=== PATIENT | female | born 1945 | race Caucasian/White ===

== ENCOUNTER 2016-08-29 15:22 | Emergency (ER) | payer MEDICARE, BC ==
[2016-08-29 16:19] VITALS: BP 145/67
--- NOTE | 2016-08-29 16:53 | UC ---
Complaint Female HPI - HPI Summary HPI Summary: Day 2 of pain, burning, urgency and frequency with urination--no fevers, chills , nausea, vomiting or back pain - History Of Current Complaint Chief Complaint: UCGU Stated Complaint: UTI COMPLAINT Time Seen by Provider: 08/29/16 16:31 Hx Obtained From: Patient ?: No Onset/Duration: Sudden Onset, Lasting Days - 2, Still Present Timing: Constant Severity Initially: Moderate Severity Currently: Moderate Pain Intensity: 5 Pain Scale Used: 0-10 Numeric Character: Burning Aggravating Factor(s): Urination Alleviating Factor(s): Nothing Associated Signs And Symptoms: Positive: Negative - Allergies/Home Medications Allergies/Adverse Reactions: Allergies Allergy/AdvReac Type Severity Reaction Status Date / Time Nickel Allergy Intermediate Hives Verified 08/29/16 16:19 Cetirizine [From Zyrtec] AdvReac Intermediate INCREASED Verified 08/29/16 16:19 BLOOD PRESSURE Levocetirizine [From Xyzal] AdvReac Intermediate INCREASED Verified 08/29/16 16: 19 BLOOD PRESSURE Morphine AdvReac Intermediate Vomiting Verified 08/29/16 16:19 SEASONAL ALLERGY Allergy Sneezing Uncoded 08/29/16 16:19 PMH/Surg Hx/FS Hx/Imm Hx Previously Healthy: No Endocrine History Of: Denies: Diabetes, Thyroid Disease Cardiovascular History Of: Reports: Cardiac Disorders, Hypertension - CONTROL WITH MEDS Respiratory History Of: Reports: Asthma - INHALERS Denies: COPD GI/ History Of: Denies: Ulcer - Surgical History Surgical History: Yes Surgery Procedure, Year, and Place: Laminectomy x2;1985 1989, [facility]. [place]04[place]21/[place] [facility] [place] [facility] [place] [facility] [place] - Family History Known Family History: Positive: None Family History: denies cardio vascular issues in family lineage - Social History Occupation: Retired Lives: With Family Alcohol Use: Rare Alcohol Amount: wine with friends Substance Use Type: None Smoking Status (MU): Never Smoked Tobacco Review of Systems Constitutional: Negative Skin: Negative Eyes: Negative ENT: Negative Respiratory: Negative Cardiovascular: Negative Gastrointestinal: Negative Genitourinary: Dysuria, Frequency, Urgency Motor: Negative Neurovascular: Negative Musculoskeletal: Negative Neurological: Negative Psychological: Negative All Other Systems Reviewed And Are Negative: Yes Physical Exam Triage Information Reviewed: Yes Appearance: Well-Appearing, No Pain Distress, Well-Nourished Vital Signs: Initial Vital Signs Temp 97.4 F 08/29/16 16:16 Pulse 65 08/29/16 16:16 Resp 18 08/29/16 16:16 BP 145/67 08/29/16 16:16 Pulse Ox 99 08/29/16 16:16 Vital Signs Reviewed: Yes Eye Exam: Normal Eyes: Positive: Conjunctiva Clear ENT Exam: Normal ENT: Positive: Normal ENT inspection, Hearing grossly normal. Negative: Nasal congestion, Nasal drainage, Trismus, Muffled/hoarse voice Dental Exam: Normal Neck exam: Normal Neck: Positive: Supple, Nontender Respiratory Exam: Normal Respiratory: Positive: Chest non-tender, No respiratory distress, No accessory muscle use Cardiovascular Exam: Normal Cardiovascular: Positive: RRR, Pulses Normal, Brisk Capillary Refill Abdominal Exam: Normal Abdomen Description: Positive: Nontender, No Organomegaly, Soft Bowel Sounds: Positive: Present Musculoskeletal Exam: Normal Musculoskeletal: Positive: Strength Intact, ROM Intact, No Edema Neurological Exam: Normal Neurological: Positive: Alert, Muscle Tone Normal Psychological Exam: Normal Skin Exam: Normal Diagnostics - Laboratory Diagnostic Studies Completed/Ordered: ua +blood and leuks Complaint Female Dx - Course Course Of Treatment: Cipro, azo, increase fluids follow with pcp - Differential Dx/Diagnosis Differential Diagnosis/HQI/PQRI: Renal Colic, Urinary Tract Infection Provider Diagnoses: UTI, Hypertension Discharge - Discharge Plan Condition: Stable Disposition: HOME Prescriptions: Ciprofloxacin TAB* [Cipro 250 MG Tab*] 250 mg PO BID #6 tab Patient Education Materials: Phenazopyridine (By mouth), Urinary Tract Infection in Women (ED), DASH Eating Plan (ED), Hypertension (ED) Referrals: Shelbie Perdomo MD [Primary Care Provider] - 2 Weeks
== END 2016-08-29 17:01 | disposition home or self-care (01) ==
LOC: UCEAST 15:22
DX: N39.0 Urinary tract infection, site not specified (principal); I10 Essential (primary) hypertension; J45.909 Unspecified asthma, uncomplicated; Z88.5 Allergy status to narcotic agent
CPT/HCPCS: 81003; 87077; 87086; 87186; 99212; G0463

== ENCOUNTER 2016-12-29 06:12 | Inpatient (IN) | payer MEDICARE, BC ==
--- NOTE | 2016-12-24 14:48 | HP ---
HISTORY AND PHYSICAL: DATE OF OFFICE VISIT: 12/23/16 DATE OF SURGERY: 12/29/16 SURGEON: Adela Das MD * (DICTATED BY RICKEY PDERO) PROCEDURE: Left total knee arthroplasty. CHIEF COMPLAINT: Left knee pain. HISTORY OF PRESENT ILLNESS: Ms. Walters is a 71-year-old female with complaints of left knee pain secondary to advanced osteoarthritis. She has failed conservative management, has elected to proceed with a left total knee arthroplasty, which is scheduled for 12/29/[address] Das. PAST MEDICAL HISTORY: History of blood clot, asthma, hypertension, hyperlipidemia, and goiter. PAST SURGICAL HISTORY: 1. Right total knee arthroplasty. 2. Lumbar laminectomies. 3. Left knee arthroscopy. 4. Varicose vein surgeries. CURRENT MEDICATIONS: 1. Omeprazole 20 mg daily. 2. Atenolol 100 mg twice a day. 3. Lisinopril/hydrochlorothiazide 20/25 mg daily. 4. Diclofenac 50 mg daily. 5. Potassium chloride. 6. Metaxalone. 7. Voltaren gel. 8. Gabapentin. 9. Betamethasone. 10. Valerate. 11. Aspirin 81 mg daily. 12. Flovent. 13. Albuterol sulfate. 14. Multivitamin. 15. Calcium with vitamin D. 16. Magnesium 400 mg daily. 17. Cranberry and probiotic. 18. Nystatin cream. ALLERGIES: To NICKEL, XYZAL, ZYRTEC, ANTIHISTAMINES, and MORPHINE. MORPHINE causes vomiting. FAMILY HISTORY: Stroke, heart disease, hypertension. SOCIAL HISTORY: She is a 71-year-old female lives with her . She does not smoke or use drugs. Rarely uses alcohol. REVIEW OF SYSTEMS: A complete 14-point review of systems is reviewed with the patient and is positive for history of DVT. PHYSICAL EXAMINATION GENERAL: She is well developed, well nourished, in no acute distress. VITAL SIGNS: She stands 5 feet 11 inches tall, weighs 260 pounds, blood pressure 115/59, her heart rate is 60. HEENT: Normocephalic, atraumatic. NECK: Supple. No palpable lymph nodes. PULMONARY: Lungs are clear to auscultation bilaterally. CARDIO: Regular rate and rhythm. Strong S1 and S2. ABDOMEN: Soft, nontender, and nondistended. NEUROLOGIC: Alert and oriented x3. Cranial nerves II through XII are intact. MUSCULOSKELETAL: Left lower extremity, skin is intact. There are no open wounds or abrasions. She has tenderness over the medial and lateral joint line , 5 to 125 degrees flexion. Her lower extremity muscle group strengths are intact at 5/5. She has 2+ dorsalis pedis pulses and intact sensation. ASSESSMENT AND PLAN: Ms. Walters is a 71-year-old female with complaints of left knee pain secondary to end-stage osteoarthritis. She has failed conservative management and has elected to proceed with a left total knee arthroplasty, which is scheduled for 12/29/[address] Das discussed the risks and benefits of the surgery on today's visit and all of her questions were answered. Postoperatively for DVT prophylaxis, she will be on Lovenox in the hospital and she will go home on Xarelto 10 mg daily, Percocet and Colace were sent to her pharmacy for postoperative pain control. She will follow up with Dr. Das in 2 weeks after the surgery. RICKEY PEDRO [id number]/[facility] #: [id number] NELLI
[~2016-12-29 06:12] MED LIST: Buffered Lidocaine 0.9% SYRIN* 5 ML/SYR SYRINGE INTRADERM ONE
[2016-12-29] MEDS ORDERED: ceFAZolin 2 GM PREMIX (*) 50 ML IVPB ONE (07:00)
[2016-12-29] MEDS ORDERED: Buffered Lidocaine 0.9% SYRIN* 5 ML/SYR SYRINGE ONE (07:00)
[2016-12-29] MEDS ORDERED: Morphine PF AMP (0.5MG/ML)* 5 MG/10 ML AMP ONE (07:19)
[2016-12-29] MEDS ORDERED: Midazolam* 1 MG/ML 5 ML VIAL (5 MG) ONE ×2 (07:19→09:08)
[2016-12-29] MEDS ORDERED: Propofol* 500 MG/50 ML BTL ONE (07:20)
[2016-12-29] MEDS ORDERED: Atenolol TAB* 50 MG PO ONE (08:00)
[2016-12-29] MEDS ORDERED: KETAMINE HCL* 50 MG/ML 10 ML VIAL ONE (08:19)
[2016-12-29] MEDS ORDERED: Acetaminophen TAB* 325 MG PO PRN (09:06)
[2016-12-29] MEDS ORDERED: HYDROcodone/ACETAMIN 5-325 MG* 1 TAB PO PRN (09:06)
[2016-12-29] MEDS ORDERED: fentaNYL* 50 MCG/ML 2 ML VIAL (100 MCG VIAL) IV PRN (09:06)
[2016-12-29] MEDS ORDERED: DiMENhydriNATE IV* 50 MG/ML VIAL IV PUSH PRN (09:06)
[2016-12-29] MEDS ORDERED: Ondansetron ODT TAB* 4 MG PO PRN (09:06)
[2016-12-29] MEDS ORDERED: Nalbuphine* 20 MG/ML 1 ML VIAL IV PRN (09:06)
[2016-12-29] MEDS ORDERED: Ondansetron INJ* 2 MG/ML VIAL IV PRN (09:08)
[2016-12-29] MEDS ORDERED: diPHENhydraMINE IV* 50 MG/ML 1 ml VIAL (BENADRYL) IV PRN ×2 (09:08→10:01)
[2016-12-29] MEDS ORDERED: Scopolamine 1.5 mg* PATCH TRANSDERM PRN (09:08)
[2016-12-29] MEDS ORDERED: Naloxone* 0.4 MG/ML 1 ML VIAL IV PRN (09:08)
[2016-12-29] MEDS ORDERED: Scopolomine PATCH Remove* 1 NOTE MISC PATCH OFF PRN (09:08)
[2016-12-29] MEDS ORDERED: Bupivacaine 0.5% SDV PF* 30 ML VIAL ONE (09:26)
[2016-12-29] MEDS ORDERED: oxyCODONE TAB* 5 MG TAB PO PRN ×2 (10:01→18:30)
[2016-12-29] MEDS ORDERED: Polyethylene Glycol 3350* 17 GM PACKET PO PRN (10:01)
[2016-12-29] MEDS ORDERED: Bisacodyl SUPP* 10 MG SUPP PR PRN (10:01)
[2016-12-29] MEDS ORDERED: Albuterol HFA INHALER* 8 gm MDI INH PRN (10:08)
[2016-12-29] MEDS ORDERED: Gabapentin CAP(*) 100 MG PO PRN (10:08)
[2016-12-29] MEDS ORDERED: Ondansetron INJ* 2 MG/ML VIAL ONE ×2 (10:09→10:10)
[2016-12-29] MEDS ORDERED: Sterile Water for Inj* 10 ML ONE (10:09)
[2016-12-29] MEDS ORDERED: Ketorolac INJ* 30 MG/ML 1 ML VIAL ONE (10:09)
[2016-12-29] MEDS ORDERED: EPHEDrine (Pressors)* 50 MG/ML VIAL ONE (10:09)
[2016-12-29] MEDS ORDERED: Midazolam* 1 MG/ML 2 ML VIAL (2 MG) ONE (10:22)
[2016-12-29] MEDS ORDERED: Albuterol 2.5 MG/3 ML NEB.SOL* (0.083%) INH PRN (11:37)
--- NOTE | 2016-12-29 13:44 | RAD ---
INDICATION: Status post total left knee replacement surgery. TECHNIQUE: 2 views of the left knee were obtained. FINDINGS: The patient is status post total left knee replacement surgery. The bones and prostheses are in normal alignment. There is a single surgical drain present along the anterolateral aspect of the knee. IMPRESSION: STATUS POST TOTAL RIGHT KNEE REPLACEMENT SURGERY.
--- NOTE | 2016-12-29 14:54 | CONS ---
CC: Dr. Perdomo; Dr. Das * CONSULTATION REPORT: DATE OF CONSULT: 12/29/16 PRIMARY CARE PROVIDER: Dr. Perdomo ATTENDING PHYSICIAN WHILE IN THE HOSPITAL: Dr. Linus Coats (report dictated by Maurizio Trinh NP). REQUESTING PHYSICIAN FOR CONSULT: Dr. Das. REASON FOR MEDICAL CONSULTATION: Evaluation and medical management of comorbid medical conditions. HISTORY OF PRESENT ILLNESS: Mrs. Walters is a 71-year-old female patient that presented to Dr. Das's service in the outpatient setting with complaints of left knee pain. She has been failing conservative management. She sought care with Dr. Das and it was felt that she would benefit from a left total knee replacement, which she underwent today. Prior to this, she did have cardiology evaluation with a negative stress test and she also underwent evaluation with her primary, and she was deemed low risk for the proposed procedure. She underwent the procedure today. She does carry a history of hypertension, DVT, status post right knee, history of asthma, hyperlipidemia, arthritis, diverticulosis, GERD, and spinal stenosis. She was evaluated in the PACU. She states she is feeling well. She feels like she has to burp. She is not having any chest pain. She is not having any abdominal pain. No nausea. No vomiting. No lightheadedness. She says that she cannot feel her lower extremities as she did undergo a spinal anesthetic and she, again, is feeling well and her pain is well controlled, but because of her medical complexity, we were asked to evaluate in consult. PAST MEDICAL HISTORY: Significant for: 1. Hypertension. 2. History of DVT that was provoked after her right total knee replacement. 3. Asthma. 4. Hyperlipidemia. 5. Arthritis. 6. Diverticulosis. 7. GERD. 8. Spinal stenosis. PAST SURGICAL HISTORY: 1. She has had 2 lumbar spinal surgeries. 2. She has had a right total knee replacement and now recently a left total knee replacement. 3. She has had vein stripping of the bilateral lower extremities. HOME MEDICATIONS: According to the list provided, include: 1. Potassium chloride 2 tablets p.o. b.i.d. 2. Omeprazole 20 mg daily. 3. Nystatin 1 application topically b.i.d. 4. Multivitamin 1 capsule daily. 5. Skelaxin 800 mg at bedtime. 6. Magnesium 400 mg p.o. q.p.m. 7. Lisinopril/hydrochlorothiazide 1 tablet p.o. daily. 8. Lactobacillus 1 capsule p.o. q.p.m. 9. Neurontin 200 mg p.o. daily as needed. 10. Neurontin 900 mg at bedtime. 11. Flovent 2 puffs inhaled b.i.d. 12. Diclofenac 50 mg p.o. q.a.m. 13. Diclofenac gel 1 application topically b.i.d. as needed. 14. Cranberry 475 mg p.o. daily. 15. Calcium with vitamin D 1 tablet p.o. daily. 16. Betamethasone 1 application topically b.i.d. as needed. 17. Atenolol 100 mg p.o. b.i.d. 18. Aspirin 81 mg daily. 19. Ventolin 2 puffs inhaled every 4 hours as needed. ALLERGIES MEDICATIONS: Include NICKEL, MINOXIDIL, CETIRIZINE, LEVOCETIRIZINE, and MORPHINE. FAMILY HISTORY: Mother had history of CVA. Father had history of heart disease and CHF. SOCIAL HISTORY: She does not smoke. She rarely drinks alcohol. Surrogate decision maker is her . REVIEW OF SYSTEMS: There is no documented fever. Denied having any significant weight change. There is no double vision. There is no ear discharge. Denied having any rhinorrhea. No sore throat. No thyroid enlargement. Denied having any chest pain. There is no orthopnea. No nocturnal dyspnea. No abdominal pain, no nausea, no vomiting. No dysuria, no frequency. No seizure, no loss of consciousness. No pruritus and no skin ulcerations. Review of 14 systems completed, all others are negative. PHYSICAL EXAMINATION: Vital Signs: Blood pressure 121/56, pulse 55, respirations 16, O2 sat 92% on 2 L, temperature 98.1. General: At this time, Mrs. Walters is a 71-year-old female patient, she appears to be well nourished, well developed. She does not appear to be in any acute distress. HEENT: Head is atraumatic and normocephalic. Eyes: EOMs are intact. Sclerae are anicteric and not pale. Neck: Supple. Throat: Oral mucosa appears to be moist. No oropharyngeal erythema. Heart: Sounds S1 and S2. Regular rate and rhythm. No murmurs, rubs or gallops. Lungs: Clear to auscultation bilaterally. No wheezing, rales or rhonchi. Abdomen: Soft, flat, nontender. Bowel sounds present. Extremities: Distal CSM checks are intact. She has no sensation to the lower extremities because of the spinal, but she has good capillary refill and 2+ pulses. No peripheral edema. Neurologic: She is awake , alert, oriented x3. Tongue, midline. Temporary Staff Accountant are equal. No gross focal deficits. Skin: Intact with the exception to the left knee, she has an Derek dressing with a Hemovac, which is clean, dry, and intact. DIAGNOSTIC STUDIES/LAB DATA: Labs, preoperatively, revealed WBC 5.0, RBC of 4.78, hemoglobin 14.6, hematocrit of 43, and platelet count of 202. The sodium is 141, potassium 4.1, chloride 104, bicarbonate 33, BUN 19, creatinine 0.87, and glucose of 86. Urine preop was negative. She did have a preop stress test , which again showed no reversible ischemia. Preop EKG shows sinus bradycardia with a rate of 58. No T-wave inversions were noted. She had a chest x-ray preop as well, no evidence of acute disease. Old medical records were reviewed. ASSESSMENT AND PLAN: Mrs. Walters is a 71-year-old female patient, coming into orthopedic services today for an elective left total knee replacement. We were asked to consult for medical co-management. Recommendations at this point are: 1. Status post left total knee: We will defer the management to Dr. aDs and her team. 2. History of provoked DVT: She is on Lovenox. She is going to be also started on Coumadin. I would continue the Lovenox until her INR is therapeutic. 3. History of hypertension: I am holding her medications, with the exception of the beta chikis. 4. History of gastroesophageal reflux disease: We will continue her meds as prescribed. 5. History of asthma: She has p.r.n. albuterol ordered and Flovent. 6. History of spinal stenosis: There are pain meds made available. 7. Diverticulosis: Not an active issue. 8. Arthritis: Follow up with her primary. 9. DVT prophylaxis: Again, high risk. She is on Lovenox bridging with the Coumadin. 10. Code status: Full code. 11. Fluids, electrolytes, and nutrition: I would recommend a regular diet. TIME SPENT: Time spent on the consult was 60 minutes, greater than half the time was spent [id number] with the patient obtaining my history of physical, the other half of the time was spent going over the plan of care with the patient and implementing plan of care. I did discuss the plan of care with my attending, Dr. Coats, who is in agreement. MAURIZIO TRINH, CASSIE [id number]/[facility] #: [id number] NELLI
[2016-12-29] MEDS: ceFAZolin 1 GM VIAL(*) 1 GM in NS 0.9% 50 ML* 50 ML IVPB SCH (16:00)
[2016-12-29] MEDS ORDERED: Warfarin TAB(*) 6 MG PO ONE (17:00)
[2016-12-29] MEDS ORDERED: Mometasone 220 MCG MDI INH SCH (18:00)
[2016-12-29] MEDS ORDERED: oxyCODONE/Acetamin 5/325 MG* TAB PO PRN (18:30)
[2016-12-29] MEDS ORDERED: Ketorolac INJ* 30 MG/ML 1 ML VIAL IV PRN (18:30)
[2016-12-29] MEDS ORDERED: oxyCODONE TAB* 5 MG TAB ONE (20:01)
[2016-12-29] MEDS: Docusate CAP* 100 MG PO SCH (21:00)
[2016-12-29] MEDS ORDERED: ATENOLOL 100 MG PO SCH (21:00)
[2016-12-29] MEDS ORDERED: PTO:Fluticasone HFA 44 mcg(NF) MDI INH SCH (21:00)
[2016-12-29] MEDS: Atenolol TAB* 50 MG PO SCH (21:02)
[2016-12-29] MEDS: Nystatin CREAM* 15 GM TUBE TOPICAL SCH (21:03)
[2016-12-29] MEDS: Metaxalone TAB* 800 MG PO SCH (21:07)
[2016-12-29] MEDS: Gabapentin CAP(*) 300 MG PO SCH (22:48)
[2016-12-30] MEDS: ceFAZolin 1 GM VIAL(*) 1 GM in NS 0.9% 50 ML* 50 ML IVPB SCH ×2 (00:07→08:11)
[2016-12-30] MEDS: Ondansetron TAB* 4 MG PO PRN ×4 (03:14→22:20)
[2016-12-30] MEDS: HYDROmorphone* 1 MG/ML 1 ML CARPUJECT IV SLOW PU PRN ×3 (03:16→13:38)
[2016-12-30 05:51] LABS: Hematocrit 35 % (35-47); Hemoglobin 12.1 g/dl (12.0-16.0)
[2016-12-30 06:06] LABS: BUN/Creatinine Ratio 21.1 (8-20); Calcium 8.8 mg/dL (8.6-10.3); EGFR African American 96.8 (>60); EGFR Non-African American 75.2 (>60); Potassium 3.6 mmol/L (3.5-5.0)
[2016-12-30] MEDS: oxyCODONE/Acetamin 5/325 MG* TAB PO PRN ×4 (06:25→22:20)
--- NOTE | 2016-12-30 07:06 | OP ---
DATE OF OPERATION: 12/29/16 - ROOM #350 DATE OF : 47 ATTENDING SURGEON: Adela Das MD COMMUNITY SUPPORT ASSOCIATE: RICKEY Worthington. Ms. Salas did help throughout the procedure with preparation of the leg, wound retraction, manipulation of the knee, and wound closure. ANESTHESIOLOGIST: Dr. Ashley Cruz. ANESTHESIA: Spinal. PRE-OP DIAGNOSIS: Severe end-stage degenerative osteoarthritis of the left knee joint. POST-OP DIAGNOSIS: Severe end-stage degenerative osteoarthritis of the left knee joint. OPERATIVE PROCEDURE: Left total knee arthroplasty. HARDWARE USED: Cemented Araujo [employer]hew total knee arthroplasty hardware. For the femur, a size 7 left Oxinium femoral component posterior stabilized, for the tibia a size 6 left tibial baseplate, for the insert an 11 mm size 5-6 posterior stabilized articular insert, and for the patella a 35 mm 3 peg all poly patella. COMPLICATIONS: None. TOURNIQUET TIME: 53 minutes. SPECIMENS: Bone and cartilage from the left knee joint sent to Pathology. EBL: 250 cc. BRIEF HISTORY/INDICATIONS: Ms. Walters is a 71-year-old female with years of increasingly severe left knee pain. She failed conservative treatment with antiinflammatories, pain medications, intra-articular injections, and physical therapy. Radiographs showed [id number] arthritis and she elected to proceed with left total knee arthroplasty. Informed consent was obtained from the patient. She understood the risks of procedure included but were not limited to bleeding, infection, damage to nearby structures, continued pain, need for further surgery, intraoperative fracture, nerve palsy, hardware failure or loosening, knee stiffness, loss of motion, stroke, heart attack, blood clot, and . She wished to proceed. INTRAOPERATIVE FINDINGS: Intraoperatively, the patient was noted to have a severe end-stage arthritis in a tricompartmental portion. DESCRIPTION OF PROCEDURE: Ms. Pizarro was identified in the preanesthesia unit. Her left lower extremity was marked as the correct operative site. Informed consent was signed and placed in the chart. The patient was taken to the operating room and placed under spinal anesthesia with an adductor nerve block. Paulino catheter was placed. Tourniquet was placed on the left thigh. Left lower extremity was prepped and draped in the usual sterile fashion. Preop time -out was made to correctly identify the patient side and site. Appropriate perioperative antibiotics were given within 1 hour of incision. Tourniquet was inflated until tourniquet time for this procedure was 53 minutes. A 15 cm midline incision was made with a 10-blade carried down to the extensor mechanism. A new 10-blade was used to make a standard medial parapatellar arthrotomy. Patella was subluxed laterally. Electrocautery was used to subperiosteally elevate soft tissue off the superomedial tibia. The knee was flexed up. The anterior horn of the lateral meniscus and ACL were sharply released. A drill was used to enter the distal femur. Intramedullary cutting jig was pinned on the distal femur. A 9-mm of distal femur was carefully removed using an oscillating saw. External rotation guide was pinned on the distal femur. The distal femur was sized to a size 7. Size 7 multi cutting jig was pinned on the distal femur. The oscillating saw was used to make the appropriate 4 chamfer cuts. Next, the PCL was completely released. The tibia was subluxed anteriorly. Extramedullary tibial cutting guide was pinned on the proximal tibia. Oscillating saw was used to make a proximal tibial cut perpendicular to the mechanical axis of the tibia. The bone was carefully removed. The knee was brought out into full extension. Spacer block had excellent fit with the knee in full extension. There was good medial and lateral ligamentous balancing. There was good flexion and extension gap balancing. The knee was flexed up. Lamina employment adjudicator was placed both medially and laterally. Any remaining meniscus was carefully removed using electrocautery. Curved osteotome and curette was used to remove posterior osteophytes. Tibial tray and drop rods were placed to once again confirm satisfactory tibial cut as this was confirmed. A size 7 left femoral trial was impacted on to the distal femur and noted to have good fit. The box for the posterior stabilized implant was prepared using a reamer and box cut osteotome. A size 6 tibial tray trial and a 11 mm insert trial were placed. The knee was taken through a range of motion. The knee had full extension to 130 degrees of flexion with satisfactory patellofemoral tracking. The patella was everted. 9 mm of patellar bone and cartilage was carefully removed from the patella using oscillating saw. The patella was sized to a size 35. Three peg holes were drilled through the size 35 guide. The 35 trial patella was placed and the knee was taken through a range of motion. There was satisfactory patellofemoral tracking. The left tibia was sized to a size 6. Proximal tibia was prepared using size 6 keel punch. All bony cut surfaces were copiously irrigated with sterile saline and dried. Final implants were cemented into place starting with the tibia followed by the femur and last the patella. An 11-mm insert trial was placed while the knee was brought out into full extension. The tourniquet was turned down at 53 minutes. The knee was copiously irrigated. Once the cement had fully cured, the insert trial was removed. Any excess cement was carefully removed from around the hardware and capsule. Electrocautery was used to obtain meticulous hemostasis. Final insert chosen was an 11-mm posterior stabilized articular insert size 5/6. This was locked into position on the tibial tray. Stability of the insert was checked and rechecked and noted to be stable. The knee was copiously irrigated with sterile saline. The extensor mechanism was closed over a medium Hemovac drain using interrupted #1 Vicryl. The rest of the incision was closed in a layered fashion using 0 and 2-0 Vicryl. Skin was closed using running 3-0 nylon suture. Sterile Xeroform, 4x4s, and Webril were used to cover the incision. Cold pack and Derek wrap were placed over this. The patient's anesthesia was reversed without difficulty. She was taken to the PACU in stable condition. Intended weight bearing will be weight bearing as tolerated. Intended DVT prophylaxis will be Coumadin with a Lovenox bridge. [id number]/[facility] #: [id number] HEALTH SYSTEMVika
[2016-12-30] MEDS ORDERED: Enoxaparin(*) 30 MG/0.3 ML SYR SUBCUT SCH (08:00)
[2016-12-30] MEDS: Docusate CAP* 100 MG PO SCH ×2 (08:06→20:40)
[2016-12-30] MEDS: Atenolol TAB* 50 MG PO SCH ×2 (08:06→20:40)
[2016-12-30] MEDS: Omeprazole CAP* 20 MG PO SCH (08:06)
[2016-12-30] MEDS: PTO:Fluticasone HFA 44 mcg(NF) MDI INH SCH ×2 (08:16→20:46)
[2016-12-30] MEDS: Nystatin CREAM* 15 GM TUBE TOPICAL SCH ×2 (08:16→20:42)
[2016-12-30] MEDS ORDERED: Lisinopril/HCTZ 10/12.5(NF) TAB PO SCH (09:00)
--- NOTE | 2016-12-30 11:47 | PN ---
Progress Note - Progress Note Date of Service: 12/30/16 SOAP: Subjective: [Pt was seen this am sitting up in bed. She states that her knee is a little stiff today and painful. She states that she was given a dose of warfarin last night but was only supposed to be on lovenox while in the hospital. She denies any n/t. No chest pain, cough or SOB. No calf pain. ] Objective: [General: Pt is alert, awake and oriented. NAD LLE: Dressing is clean, dry and intact. Hemovac drain was pulled today and was found to have 275 ccs of blood. Calf is soft and non tender. + df/pf. NVI. ] Vital Signs Temp 98.6 F 12/30/16 07:32 Pulse 78 12/30/16 07:32 Resp 18 12/30/16 08:59 BP 149/65 12/30/16 07:32 Pulse Ox 100 12/30/16 08:00 Intake & Output 12/29/16 12/30/16 12/30/16 18:59 06:59 18:59 Intake Total 1630 2530 120 Output Total 840 450 0 Balance 790 2080 120 Weight 268 lb Intake: IV Fluids 1150 980 LR 1100 980 NS 50ML, Cefazolin 2G 50 Oral 480 1550 120 Output: Urine 300 Paulino 400 450 0 Estimated Blood Loss 140 Other: # Bowel Movements 0 Assessment: [POD 1 S/P LTKA] Plan: [D/C warfarin, pt will only have lovenox while in house. D/C on xarelto PT/OT Paulino out today Dressing change tomorrow. ]
--- NOTE | 2016-12-30 15:03 | PN ---
Subjective Date of Service: 12/30/16 Interval History: Patient seen and examined at bedside. She reports having some nausea following IV morphine earlier today. Patient reports pain that responds to morphine but less responsive to PO medications. After her prior knee replacement, she reports that she was discharged on Percocet and did okay but the first few days required IV meds. Denies CP, SOB. Reports a hx of DVT following last knee replacement, does not want warfarin, only Xarelto. No other acute concerns. Family History: Unchanged from Admission Social History: Unchanged from Admission Past Medical History: Unchanged from Admission Objective Active Medications: Acetaminophen (Tylenol Tab*) 650 mg PO Q4H PRN PRN Reason: PAIN OR TEMPERATURE Albuterol (Ventolin Hfa Inhaler*) 2 puff INH Q4H PRN PRN Reason: WHEEZING Albuterol (Ventolin 2.5 Mg/3 Ml Neb.Ivette*) 2.5 mg INH Q2H PRN PRN Reason: SOB/WHEEZING Atenolol (Tenormin Tab*) 100 mg PO BID [facility] Last Admin: 12/30/16 08:06 Dose: 100 mg Bisacodyl (Dulcolax Supp*) 10 mg [place] DAILY PRN PRN Reason: constipation Diphenhydramine HCl (Benadryl Iv*) 12.5 mg IV Q6H PRN PRN Reason: PRURITIS Docusate Sodium (Colace Cap*) 100 mg PO BID [facility] Last Admin: 12/30/16 08:06 Dose: 100 mg Enoxaparin Sodium (Lovenox(*)) 30 mg SUBCUT Q24H [facility] Last Admin: 12/30/16 08:07 Dose: 30 mg Fluticasone Propionate (Flovent Hfa 44 Mcg(Nf)) 2 puff INH 0900,2100 [facility] Last Admin: 12/30/16 08:16 Dose: 2 inhaler Gabapentin (Neurontin Cap(*)) 900 mg PO BEDTIME [facility] Last Admin: 12/29/16 22:48 Dose: Not Given Gabapentin (Neurontin Cap(*)) 200 mg PO DAILY PRN PRN Reason: PAIN/SLEEP Hydromorphone HCl (Dilaudid Iv*) 1 mg IV SLOW PU Q4H PRN PRN Reason: PAIN Last Admin: 12/30/16 13:38 Dose: 1 mg Lactated Ringer's (Lactated Ringers 1000 Ml Bag*) 1,000 mls @ 100 mls/hr IV PER RATE [facility] Last Admin: 12/29/16 22:45 Dose: 100 mls/hr Ketorolac Tromethamine (Toradol Inj*) 30 mg IV Q6H PRN PRN Reason: PAIN Stop: 12/30/16 18:32 Last Admin: 12/30/16 08:07 Dose: 30 mg Lactulose (Lactulose*) 30 ml PO Q6H PRN PRN Reason: constipation Magnesium Hydroxide (Milk Of Magnesia Liq*) 30 ml PO Q6H PRN PRN Reason: constipation Metaxalone (Skelaxin Tab*) 800 mg PO BEDTIME [facility] Last Admin: 12/29/16 21:07 Dose: Not Given Nystatin (Nystatin Cream*) 1 applic TOPICAL BID [facility] Last Admin: 12/30/16 08:16 Dose: 1 applic Omeprazole (Prilosec Cap*) 20 mg PO QAM [facility] Last Admin: 12/30/16 08:06 Dose: 20 mg Ondansetron HCl (Zofran Tab*) 4 mg PO Q6H PRN PRN Reason: NAUSEA Last Admin: 12/30/16 13:39 Dose: 4 mg Oxycodone HCl (Roxycodone Tab*) 10 mg PO Q4H PRN PRN Reason: SEVERE PAIN Last Admin: 12/30/16 00:12 Dose: 10 mg Oxycodone/Acetaminophen (Percocet 5/325 Tab*) 1 tab PO Q3H PRN PRN Reason: PAIN - MODERATE Oxycodone/Acetaminophen (Percocet 5/325 Tab*) 2 tab PO Q3H PRN PRN Reason: PAIN - MODERATE Last Admin: 12/30/16 12:14 Dose: 2 tab Pharmacy Profile Note (Scopolomine Patch Remove*) 1 note PATCH OFF .AFTER 72 HOURS PRN PRN Reason: nausea Stop: 01/01/17 09:15 Polyethylene Glycol/Electrolytes (Miralax*) 17 gm PO DAILY PRN PRN Reason: Constipation Vital Signs 12/29/16 12/29/16 12/29/16 16:29 18:39 19:45 Temperature 97.1 F Pulse Rate 55 54 Respiratory 18 18 18 Rate Blood Pressure 126/72 136/60 (mmHg) O2 Sat by Pulse 99 97 Oximetry 12/29/16 12/29/16 12/29/16 20:04 20:59 21:07 Temperature Pulse Rate 60 Respiratory 16 16 16 Rate Blood Pressure 142/71 (mmHg) O2 Sat by Pulse 95 Oximetry 12/29/16 12/29/16 12/29/16 21:11 22:11 22:43 Temperature Pulse Rate Respiratory 16 18 16 Rate Blood Pressure (mmHg) O2 Sat by Pulse Oximetry 12/29/16 12/29/16 12/30/16 22:48 23:18 00:12 Temperature 97.9 F Pulse Rate 66 Respiratory 16 16 18 Rate Blood Pressure 112/51 (mmHg) O2 Sat by Pulse 100 Oximetry 12/30/16 12/30/16 12/30/16 02:12 02:44 03:16 Temperature Pulse Rate 66 Respiratory 16 16 20 Rate Blood Pressure (mmHg) O2 Sat by Pulse 95 Oximetry 12/30/16 12/30/16 12/30/16 03:31 04:16 06:25 Temperature 99.7 F Pulse Rate 78 Respiratory 18 16 18 Rate Blood Pressure 141/62 (mmHg) O2 Sat by Pulse 89 Oximetry 12/30/16 12/30/16 12/30/16 07:32 07:59 08:00 Temperature 98.6 F Pulse Rate 78 Respiratory 16 18 18 Rate Blood Pressure 149/65 (mmHg) O2 Sat by Pulse 100 100 Oximetry 12/30/16 12/30/16 12/30/16 08:25 08:59 11:31 Temperature 98.3 F Pulse Rate 73 Respiratory 18 18 16 Rate Blood Pressure 144/47 (mmHg) O2 Sat by Pulse 93 Oximetry 12/30/16 12/30/16 12/30/16 12:14 13:38 14:14 Temperature Pulse Rate Respiratory 18 18 18 Rate Blood Pressure (mmHg) O2 Sat by Pulse Oximetry 12/30/16 12/30/16 14:34 14:44 Temperature Pulse Rate Respiratory 18 Rate Blood Pressure (mmHg) O2 Sat by Pulse 93 Oximetry Oxygen Devices in Use Now: None Appearance: Female patient, sitting up in bed, in NAD Eyes: No Scleral Icterus Ears/Nose/Mouth/Throat: Clear Oropharnyx, Mucous Membranes Moist Neck: NL Appearance and Movements; NL JVP Respiratory: Symmetrical Chest Expansion and Respiratory Effort, Clear to Auscultation Cardiovascular: NL Sounds; No Murmurs; No JVD, RRR Abdominal: NL Sounds; No Tenderness; No Distention Extremities: No Clubbing, Cyanosis, - Skin: No Rash or Ulcers Neurological: Alert and Oriented x 3, NL Muscle Strength and Tone Lines/Tubes/Other Access: Clean, Dry and Intact Peripheral IV Nutrition: Taking PO's Result Diagrams: 12/30/16 05:44 12/30/16 05:44 Assess/Plan/Problems-Billing Assessment: Ms. Walters is a 71 yo female with a PMH of HTN, HLD, asthma, provoked DVT following previous knee replacement, OA, GERD, and spinal stenosis who underwent a left total knee replacement on 12/29/16. - Patient Problems (1) Status post total left knee replacement Code(s): Z96.652 - PRESENCE OF LEFT ARTIFICIAL KNEE JOINT Comment: POD #1, management per ortho Continue with pain management PT/OT (2) History of DVT (deep vein thrombosis) Code(s): Z86.718 - PERSONAL HISTORY OF OTHER VENOUS THROMBOSIS AND EMBOLISM Comment: Hx of provoked DVT following right knee arthroplasty Pt refusing to be maintained on warfarin, requesting Xarelto Cont Lovenox, plan to start Xarelto POD #2 in order to minimize risk of bleeding. (3) HTN (hypertension) Code(s): I10 - ESSENTIAL (PRIMARY) HYPERTENSION Comment: Normotensive Continue atenolol Lisinopril and HCTZ held post op Day 1 Plan to resume lisinopril on 12/31 (4) GERD (gastroesophageal reflux disease) Code(s): K21.9 - GASTRO-ESOPHAGEAL REFLUX DISEASE WITHOUT ESOPHAGITIS Comment : Continue omeprazole. (5) Asthma Code(s): J45.909 - UNSPECIFIED ASTHMA, UNCOMPLICATED Comment: Stable Continue prn albuterol (6) DVT prophylaxis Comment: Lovenox Pt refusing warfarin Will initiate rivaroxaban 10 mg per recommendations for knee replacements on POD #2 SCDs Status and Disposition: Inpatient admission. Dispo per ortho. Hospitalist co-medical management.
[2016-12-30] MEDS ORDERED: PROCHLORPERAZINE INJ 5 MG/ML 2 ML VIAL ONE (19:37)
[2016-12-30] MEDS: Gabapentin CAP(*) 300 MG PO SCH (20:39)
[2016-12-30] MEDS: Metaxalone TAB* 800 MG PO SCH (20:39)
[2016-12-30] MEDS ORDERED: PROCHLORPERAZINE INJ 5 MG/ML 2 ML VIAL IV PRN (21:14)
[2016-12-31 06:59] LABS: Hematocrit 33 % (35-47); Hemoglobin 11.4 g/dl (12.0-16.0)
[2016-12-31] MEDS: Acetaminophen TAB* 325 MG PO PRN (08:05)
[2016-12-31] MEDS: oxyCODONE/Acetamin 5/325 MG* TAB PO PRN ×6 (08:05→22:24)
--- NOTE | 2016-12-31 08:05 | PN ---
Progress Note - Progress Note Date of Service: 12/31/16 SOAP: Subjective: [Pt. doing fairly well. Little pain while at rest. Increased pain with any movement of L knee. Slept. PT going well. Some nausea and vomiting associated with pain meds. Denies CP, SOB, dizziness.] Objective: [A and O x 3, NAD, VSS L knee dressing changed. Surgical incision benign. No drainage. Scant erythema. Mild edema down to ankle - calf soft, NT. NV function and gross motor intact. Vital Signs: Temp Pulse Resp BP Pulse Ox 98.6 F 83 16 161/60 98 12/31/16 07:29 12/31/16 07:29 12/31/16 07:29 12/31/16 07:29 12/31/16 07:29 Laboratory Results - last 24 hr 12/31/16 12/31/16 06:43 06:43 Hgb 11.4 L Hct 33 L INR (Anticoag Therapy) 1.42 H ] Assessment: [71 yo female s/p L TKA POD #2] Plan: [Pain management PT Patient on Xarelto only for DVT prophylaxis Likely D/C home tomorrow ]
[2016-12-31] MEDS: Nystatin CREAM* 15 GM TUBE TOPICAL SCH ×2 (08:26→22:05)
[2016-12-31] MEDS: PTO:Fluticasone HFA 44 mcg(NF) MDI INH SCH ×2 (08:27→20:01)
[2016-12-31] MEDS: Magnesium Hydroxide LIQ* 30 ML UDC PO PRN ×3 (08:31→22:23)
[2016-12-31] MEDS: Atenolol TAB* 50 MG PO SCH ×2 (08:32→22:05)
[2016-12-31] MEDS: Rivaroxaban TAB(*) 10 MG PO SCH (08:32)
[2016-12-31] MEDS: Omeprazole CAP* 20 MG PO SCH (08:32)
[2016-12-31] MEDS: Docusate CAP* 100 MG PO SCH ×2 (08:32→22:07)
[2016-12-31] MEDS: Lisinopril TAB* 10 MG PO SCH (08:33)
--- NOTE | 2016-12-31 15:21 | PN ---
Subjective Date of Service: 12/31/16 Interval History: Ms. Walters denies complaint other than some intermittent left knee pain. She specifically denies chest pain, SOB, nausea, or abdominal pain. Family History: Unchanged from Admission Social History: Unchanged from Admission Past Medical History: Unchanged from Admission Objective Active Medications: Acetaminophen (Tylenol Tab*) 650 mg PO Q4H PRN Albuterol (Ventolin Hfa Inhaler*) 2 puff INH Q4H PRN Albuterol (Ventolin 2.5 Mg/3 Ml Neb.Ivette*) 2.5 mg INH Q2H PRN Atenolol (Tenormin Tab*) 100 mg PO BID [facility] Bisacodyl (Dulcolax Supp*) 10 mg NM DAILY PRN Diphenhydramine HCl (Benadryl Iv*) 12.5 mg IV Q6H PRN Docusate Sodium (Colace Cap*) 100 mg PO BID [facility] Fluticasone Propionate (Flovent Hfa 44 Mcg(Nf)) 2 puff INH 0900,2100 [facility] Gabapentin (Neurontin Cap(*)) 900 mg PO BEDTIME [facility] Gabapentin (Neurontin Cap(*)) 200 mg PO DAILY PRN Hydromorphone HCl (Dilaudid Iv*) 1 mg IV SLOW PU Q4H PRN Lactated Ringer's (Lactated Ringers 1000 Ml Bag*) 1,000 mls @ 100 mls/hr IV PER RATE [facility] Lactulose (Lactulose*) 30 ml PO Q6H PRN Lisinopril (Prinivil Tab*) 20 mg PO DAILY [facility] Magnesium Hydroxide (Milk Of Magnesia Liq*) 30 ml PO Q6H PRN Metaxalone (Skelaxin Tab*) 800 mg PO BEDTIME [facility] Nystatin (Nystatin Cream*) 1 applic TOPICAL BID [facility] Omeprazole (Prilosec Cap*) 20 mg PO QAM [facility] Ondansetron HCl (Zofran Tab*) 4 mg PO Q6H PRN Oxycodone HCl (Roxycodone Tab*) 10 mg PO Q4H PRN Oxycodone/Acetaminophen (Percocet 5/325 Tab*) 1 tab PO Q3H PRN Oxycodone/Acetaminophen (Percocet 5/325 Tab*) 2 tab PO Q3H PRN Pharmacy Profile Note (Scopolomine Patch Remove*) 1 note PATCH OFF .AFTER 72 HOURS PRN Polyethylene Glycol/Electrolytes (Miralax*) 17 gm PO DAILY PRN Prochlorperazine Edisylate (Compazine Inj*) 10 mg IV Q6H PRN Rivaroxaban (Xarelto(*)) 10 mg PO DAILY [facility] Vital Signs 12/30/16 12/30/16 12/30/16 15:35 17:46 19:27 Temperature 97.5 F 97.6 F Pulse Rate 73 79 Respiratory 18 18 18 Rate Blood Pressure 116/57 155/66 (mmHg) O2 Sat by Pulse 92 99 Oximetry 12/30/16 12/30/16 12/30/16 19:46 20:15 20:16 Temperature 98.4 F Pulse Rate 84 Respiratory 16 18 16 Rate Blood Pressure 174/64 (mmHg) O2 Sat by Pulse 98 Oximetry 12/30/16 12/30/16 12/30/16 20:25 20:39 20:47 Temperature Pulse Rate 87 20 Respiratory 16 75 Rate Blood Pressure 158/62 (mmHg) O2 Sat by Pulse 92 Oximetry 12/30/16 12/30/16 12/30/16 20:48 22:20 22:39 Temperature Pulse Rate Respiratory 18 18 Rate Blood Pressure (mmHg) O2 Sat by Pulse 92 Oximetry 12/31/16 12/31/16 12/31/16 00:02 00:20 03:45 Temperature 98.2 F 97.7 F Pulse Rate 65 88 Respiratory 14 16 18 Rate Blood Pressure 141/61 150/70 (mmHg) O2 Sat by Pulse 96 94 Oximetry 12/31/16 12/31/16 12/31/16 07:29 08:00 08:05 Temperature 98.6 F Pulse Rate 83 Respiratory 16 16 20 Rate Blood Pressure 161/60 (mmHg) O2 Sat by Pulse 98 98 Oximetry 12/31/16 12/31/16 12/31/16 08:57 09:47 10:05 Temperature Pulse Rate 74 Respiratory 16 18 18 Rate Blood Pressure (mmHg) O2 Sat by Pulse 97 Oximetry 12/31/16 12/31/16 12/31/16 11:19 11:47 13:13 Temperature 98.4 F Pulse Rate 69 Respiratory 16 18 18 Rate Blood Pressure 128/54 (mmHg) O2 Sat by Pulse 99 Oximetry 12/31/16 12/31/16 14:54 14:55 Temperature Pulse Rate Respiratory 18 18 Rate Blood Pressure (mmHg) O2 Sat by Pulse Oximetry Oxygen Devices in Use Now: None Appearance: Female sitting up in bed in NAD Eyes: No Scleral Icterus Ears/Nose/Mouth/Throat: Mucous Membranes Moist Neck: Trachea Midline Respiratory: Symmetrical Chest Expansion and Respiratory Effort, Clear to Auscultation Cardiovascular: NL Sounds; No Murmurs; No JVD, No Edema Abdominal: NL Sounds; No Tenderness; No Distention Lymphatic: No Cervical Adenopathy Extremities: No Edema Skin: No Rash or Ulcers Neurological: Alert and Oriented x 3, NL Muscle Strength and Tone Nutrition: Taking PO's Result Diagrams: 12/31/16 06:43 12/30/16 05:44 Assess/Plan/Problems-Billing Assessment: Ms. Walters is a 71 yo female with a PMH of HTN, HLD, asthma, provoked DVT following previous knee replacement, OA, GERD, and spinal stenosis who underwent a left total knee replacement on 12/29/16. - Patient Problems (1) Status post total left knee replacement Comment: POD #2, management per ortho Continue with pain management PT/OT (2) History of DVT (deep vein thrombosis) Comment: Hx of provoked DVT following right knee arthroplasty Xarelto started today. (3) HTN (hypertension) Comment: Normotensive Continue atenolol, lisinopril and resume hctz at discharge (4) Asthma Comment: Stable Continue prn albuterol (5) GERD (gastroesophageal reflux disease) Comment: Continue omeprazole. (6) DVT prophylaxis Comment: Xarelto started today. Status and Disposition: Inpatient admission. Dispo per ortho. Hospital Medicine to sign off for now but please do not hesitate to call with further concerns or questions..
[2016-12-31] MEDS: Metaxalone TAB* 800 MG PO SCH (22:06)
[2016-12-31] MEDS: Gabapentin CAP(*) 300 MG PO SCH (22:06)
[2017-01-01] MEDS: oxyCODONE/Acetamin 5/325 MG* TAB PO PRN ×3 (04:04→13:32)
[2017-01-01 06:46] LABS: Hematocrit 33 % (35-47); Hemoglobin 11.5 g/dl (12.0-16.0)
[2017-01-01] MEDS: Docusate CAP* 100 MG PO SCH (08:18)
[2017-01-01] MEDS: Omeprazole CAP* 20 MG PO SCH (08:18)
[2017-01-01] MEDS: Atenolol TAB* 50 MG PO SCH (08:18)
[2017-01-01] MEDS: Rivaroxaban TAB(*) 10 MG PO SCH (08:18)
[2017-01-01] MEDS: Lisinopril TAB* 10 MG PO SCH (08:18)
[2017-01-01] MEDS: PTO:Fluticasone HFA 44 mcg(NF) MDI INH SCH (08:24)
[2017-01-01] MEDS: Acetaminophen TAB* 325 MG PO PRN ×2 (08:24→13:32)
[2017-01-01] MEDS: Nystatin CREAM* 15 GM TUBE TOPICAL SCH (08:25)
[2017-01-01 11:04] VITALS: BP 115/49
--- NOTE | 2017-01-01 12:37 | PN ---
Subjective Date of Service: 01/01/17 Interval History: Asked to see patient due to concern for crackles on lung ausculation. Ms. Walters states that she is feeling well and has no acute complaints. She is eager for discharge today. She denies chest pain, SOB, nausea, or abdominal pain. Family History: Unchanged from Admission Social History: Unchanged from Admission Past Medical History: Unchanged from Admission Objective Active Medications: Acetaminophen (Tylenol Tab*) 650 mg PO Q4H PRN Albuterol (Ventolin Hfa Inhaler*) 2 puff INH Q4H PRN Albuterol (Ventolin 2.5 Mg/3 Ml Neb.Ivette*) 2.5 mg INH Q2H PRN Atenolol (Tenormin Tab*) 100 mg PO BID [facility] Bisacodyl (Dulcolax Supp*) 10 mg DC DAILY PRN Diphenhydramine HCl (Benadryl Iv*) 12.5 mg IV Q6H PRN Docusate Sodium (Colace Cap*) 100 mg PO BID [facility] Fluticasone Propionate (Flovent Hfa 44 Mcg(Nf)) 2 puff INH 0900,2100 [facility] Gabapentin (Neurontin Cap(*)) 900 mg PO BEDTIME [facility] Gabapentin (Neurontin Cap(*)) 200 mg PO DAILY PRN Hydromorphone HCl (Dilaudid Iv*) 1 mg IV SLOW PU Q4H PRN Lactated Ringer's (Lactated Ringers 1000 Ml Bag*) 1,000 mls @ 100 mls/hr IV PER RATE [facility] Lactulose (Lactulose*) 30 ml PO Q6H PRN Lisinopril (Prinivil Tab*) 20 mg PO DAILY [facility] Magnesium Hydroxide (Milk Of Magnesia Liq*) 30 ml PO Q6H PRN Metaxalone (Skelaxin Tab*) 800 mg PO BEDTIME [facility] Nystatin (Nystatin Cream*) 1 applic TOPICAL BID [facility] Omeprazole (Prilosec Cap*) 20 mg PO QAM [facility] Ondansetron HCl (Zofran Tab*) 4 mg PO Q6H PRN Oxycodone HCl (Roxycodone Tab*) 10 mg PO Q4H PRN Oxycodone/Acetaminophen (Percocet 5/325 Tab*) 1 tab PO Q3H PRN Oxycodone/Acetaminophen (Percocet 5/325 Tab*) 2 tab PO Q3H PRN Polyethylene Glycol/Electrolytes (Miralax*) 17 gm PO DAILY PRN Prochlorperazine Edisylate (Compazine Inj*) 10 mg IV Q6H PRN Rivaroxaban (Xarelto(*)) 10 mg PO DAILY [facility] Vital Signs 12/31/16 12/31/16 12/31/16 13:13 14:54 14:55 Temperature Pulse Rate Respiratory 18 18 18 Rate Blood Pressure (mmHg) O2 Sat by Pulse Oximetry 12/31/16 12/31/16 12/31/16 16:00 16:23 16:54 Temperature 97.8 F Pulse Rate 72 Respiratory 18 18 Rate Blood Pressure 145/53 (mmHg) O2 Sat by Pulse 99 99 Oximetry 12/31/16 12/31/16 12/31/16 19:05 19:30 20:00 Temperature 98.1 F Pulse Rate 72 73 Respiratory 18 20 20 Rate Blood Pressure 148/57 (mmHg) O2 Sat by Pulse 95 93 Oximetry 12/31/16 12/31/16 12/31/16 20:05 21:05 22:00 Temperature Pulse Rate Respiratory 16 16 Rate Blood Pressure (mmHg) O2 Sat by Pulse 93 Oximetry 12/31/16 12/31/16 12/31/16 22:03 22:06 22:24 Temperature 99.6 F Pulse Rate 73 Respiratory 16 16 16 Rate Blood Pressure 151/60 (mmHg) O2 Sat by Pulse 93 Oximetry 01/01/17 01/01/17 01/01/17 00:00 00:06 04:04 Temperature 99.1 F Pulse Rate 73 Respiratory 14 16 Rate Blood Pressure 149/65 (mmHg) O2 Sat by Pulse 95 95 Oximetry 01/01/17 01/01/17 01/01/17 04:05 06:04 07:51 Temperature 98.6 F 98.6 F Pulse Rate 72 67 Respiratory 17 18 16 Rate Blood Pressure 152/81 115/49 (mmHg) O2 Sat by Pulse 97 98 Oximetry 01/01/17 01/01/17 08:18 08:32 Temperature Pulse Rate 74 Respiratory 16 14 Rate Blood Pressure (mmHg) O2 Sat by Pulse 95 Oximetry Oxygen Devices in Use Now: None Appearance: Female sitting up in bed in NAD Eyes: No Scleral Icterus Ears/Nose/Mouth/Throat: NL Teeth, Lips, Gums Neck: NL Appearance and Movements; NL JVP, Trachea Midline Respiratory: Symmetrical Chest Expansion and Respiratory Effort, - - Inspiratory crackles in bases, good aeration, no accessory muscle use Cardiovascular: NL Sounds; No Murmurs; No JVD, No Edema Abdominal: NL Sounds; No Tenderness; No Distention Lymphatic: No Cervical Adenopathy Skin: No Rash or Ulcers Neurological: Alert and Oriented x 3, NL Muscle Strength and Tone Nutrition: Taking PO's Result Diagrams: 01/01/17 06:24 12/30/16 05:44 Assess/Plan/Problems-Billing Assessment: Ms. Walters is a 71 yo female with a PMH of HTN, HLD, asthma, provoked DVT following previous knee replacement, OA, GERD, and spinal stenosis who underwent a left total knee replacement on 12/29/16. - Patient Problems (1) Status post total left knee replacement Comment: POD #3, management per ortho Continue with pain management PT/OT (2) Asthma Comment: Stable Continue prn albuterol Patient has inspiratory crackles on exam consistent with atelectasis. Recommened IS and increased mobility as possible. (3) History of DVT (deep vein thrombosis) Comment: Hx of provoked DVT following right knee arthroplasty Xarelto started today. (4) HTN (hypertension) Comment: Normotensive Continue atenolol, lisinopril and resume hctz at discharge (5) GERD (gastroesophageal reflux disease) Comment: Continue omeprazole. (6) DVT prophylaxis Comment: Xarelto started today. Status and Disposition: Inpatient admission. Dispo per ortho. Hospital Medicine approves discharge to home per Ortho.
--- NOTE | 2017-01-02 06:04 | DS ---
DISCHARGE SUMMARY: DATE OF ADMISSION: 12/29/16 DATE OF DISCHARGE: 01/01/17 ATTENDING PHYSICIAN: Dr. Adela Das * (DICTATED BY RICKEY MCFADDEN) PRINCIPAL DIAGNOSIS: Left knee osteoarthritis. SECONDARY DIAGNOSES: 1. Right total knee arthroplasty. 2. Lumbar laminectomy and history of blood clot. 3. Asthma. 4. Hypertension. 5. Hyperlipidemia. 6. Goiter. PRINCIPAL PROCEDURE: Left total knee replacement. REASON FOR HOSPITALIZATION: Ms. Walters is a 71-year-old female with complaints of left knee pain secondary to advanced osteoarthritis. She has failed conservative management and has elected to proceed with left total knee arthroplasty which was done on 12/29/[address] Das. HOSPITAL COURSE: The patient was admitted to the hospital on 12/29/16 for anticipated left total knee arthroplasty. She underwent surgery without any complications. She was taken to the recovery room and subsequently the surgical stay unit in a stable condition. Hemovac was discontinued on postop day #1. Vital signs remained stable throughout the hospital including remaining afebrile. Patient was originally started on Lovenox and warfarin for a DVT prophylaxis and then transitioned to Xarelto. Her Paulino catheter was discontinued on postop day #1 as well. She is continued with physical therapy throughout the hospital stay and has done well with that. She has had daily INR and hemoglobin and hematocrit checks and on the day of discharge, hemoglobin was 11.5, hematocrit was 33, INR 1.33. She has had no complications during the hospital stay and is being discharged to home on 01/01/17 in a stable condition. DISCHARGE INSTRUCTIONS: Continue with the Xarelto 10 mg daily for one month. Weightbearing as tolerated left lower extremity. May shower with daily dry sterile gauze, apply to wound until sutures are removed. Sutures will be removed on postop day #10 by the home health nurse. She will follow up in the office with Dr. Das in 4 weeks. RICKEY MCFADDEN [id number]/[facility] #: [id number] [facility]
== END 2017-01-01 13:30 | disposition home health service (06) | DRG 470 ==
LOC: AA 06:12 → SSU 12:33
PROVIDERS: ADMIT Orthopaedic Surgery Adult Reconstructive Orthopaedic Surgery; ATTEND Orthopaedic Surgery Adult Reconstructive Orthopaedic Surgery
PROC: 0SRD0J9 Replacement of Left Knee Joint with Synthetic Substitute, Cemented, Open Approach (ICD-10-PCS; principal; 2016-12-29 08:00)
DX: M17.12 Unilateral primary osteoarthritis, left knee (principal); I10 Essential (primary) hypertension; E04.9 Nontoxic goiter, unspecified; J45.909 Unspecified asthma, uncomplicated; E78.5 Hyperlipidemia, unspecified; Z88.5 Allergy status to narcotic agent; Z88.8 Allergy status to other drugs, medicaments and biological substances; Z82.3 Family history of stroke; Z82.49 Family history of ischemic heart disease and other diseases of the circulatory system; Z72.89 Other problems related to lifestyle; Z86.718 Personal history of other venous thrombosis and embolism; K21.9 Gastro-esophageal reflux disease without esophagitis; Z96.651 Presence of right artificial knee joint; M48.00 Spinal stenosis, site unspecified; M54.30 Sciatica, unspecified side
CPT/HCPCS: 36415; 80048; 85014; 85018; 85610; 94640; A9270-GY; C1776; J0690; J0780; J1170; J1650; J1885; J2250; J2405; J2704

== ENCOUNTER 2017-04-19 13:49 | Emergency (ER) | payer MEDICARE, BC ==
[2017-04-19 15:29] VITALS: BP 145/68
--- NOTE | 2017-04-19 15:53 | UC ---
Ear Complaint HPI - HPI Summary HPI Summary: 71 yo female with sinus pain and pressure x 4-5 days now with moderate right earache during the night had some drainage from that ear has remote hx of perf of that ear drum - History of Current Complaint Chief Complaint: UCGeneralIllness Stated Complaint: RIGHT EAR PAIN, SINUS PAIN Time Seen by Provider: 04/19/17 15:44 Hx Obtained From: Patient Onset/Duration: Gradual Onset, Lasting Hours Severity Initially: Moderate Severity Currently: Moderate Pain Intensity: 7 Pain Scale Used: 0-10 Numeric Alleviating Factors: Nothing Associated Signs/Symptoms: Positive: Discharge, Hearing Loss, URI Symptoms - Allergies/Home Medications Allergies/Adverse Reactions: Allergies Allergy/AdvReac Type Severity Reaction Status Date / Time Nickel Allergy Intermediate Hives Verified 04/19/17 15:16 Minoxidil Allergy CHEST Verified 04/19/17 15:16 PRESSURE Cetirizine [From Zyrtec] AdvReac Intermediate INCREASED Verified 04/19/17 15:16 BLOOD PRESSURE/rapid heart rate Levocetirizine [From Xyzal] AdvReac Intermediate INCREASED Verified 04/19/17 15: 16 BLOOD PRESSURE, rapid heart rate Morphine AdvReac Intermediate Vomiting Verified 04/19/17 15:16 SEASONAL ALLERGY Allergy Sneezing Uncoded 04/19/17 15:16 PMH/Surg Hx/FS Hx/Imm Hx Previously Healthy: Yes Cardiovascular History: Hypertension - Surgical History Surgical History: Yes Surgery Procedure, Year, and Place: Laminectomy x2;1985 1989, [facility]. Right Total Knee04/21/10; [facility] [place]. Left Knee Arthroscopy; [facility] [place]. Vein Surgery Left Leg 2012, [facility] [place], OFFICE X 2. L Knee replacement 01/03 - Family History Known Family History: Positive: Hypertension Family History: denies cardio vascular issues in family lineage - Social History Alcohol Use: Rare Alcohol Amount: wine with friends Substance Use Type: None Smoking Status (MU): Never Smoked Tobacco - Immunization History Most Recent Influenza Vaccination: HAS NOT HAD Most Recent Pneumonia Vaccination: NONE Review of Systems Constitutional: Negative Skin: Negative Eyes: Negative ENT: Ear Ache, Nasal Discharge, Sinus Congestion, Sinus Pain/Tenderness Respiratory: Negative Cardiovascular: Negative Gastrointestinal: Negative Genitourinary: Negative Motor: Negative Neurovascular: Negative Musculoskeletal: Negative Neurological: Negative Psychological: Negative Is Patient Immunocompromised?: No All Other Systems Reviewed And Are Negative: Yes Physical Exam Triage Information Reviewed: Yes Appearance: Well-Appearing, No Pain Distress, Well-Nourished Vital Signs: Initial Vital Signs Temp 99.4 F 04/19/17 15:21 Pulse 73 04/19/17 15:21 Resp 20 04/19/17 15:21 BP 145/68 04/19/17 15:21 Pulse Ox 97 04/19/17 15:21 Eyes: Positive: Conjunctiva Clear ENT: Positive: Nasal congestion, Uvula midline. Negative: Hearing grossly normal, Nasal drainage, TMs normal - Right TM red with perf/fluid in EAC, Trismus, Muffled voice, Hoarse voice, Sinus tenderness Neck: Positive: Supple, Nontender, No Lymphadenopathy Respiratory: Positive: Lungs clear, Normal breath sounds, No respiratory distress, No accessory muscle use Cardiovascular: Positive: RRR, No Murmur, Pulses Normal Musculoskeletal: Positive: ROM Intact, No Edema Neurological: Positive: Alert Psychological Exam: Normal Skin Exam: Normal Ear Complaint Course/Dx - Differential Dx/Diagnosis Provider Diagnoses: right otitis media with perforation Discharge - Discharge Plan Condition: Stable Disposition: HOME Prescriptions: Amoxicillin PO (*) [Amoxicillin 875 MG (*)] 875 mg PO BID #20 tab Patient Education Materials: Ruptured Eardrum (ED), Otitis Media (ED) Referrals: Shelbie Perdomo MD [Primary Care Provider] - 2 Weeks
== END 2017-04-19 16:02 | disposition home or self-care (01) ==
LOC: UCEAST 13:49
DX: H66.91 Otitis media, unspecified, right ear (principal); H72.91 Unspecified perforation of tympanic membrane, right ear; I10 Essential (primary) hypertension; Z96.652 Presence of left artificial knee joint; Z88.5 Allergy status to narcotic agent; Z88.8 Allergy status to other drugs, medicaments and biological substances
CPT/HCPCS: 99212; G0463

== ENCOUNTER 2017-05-02 09:23 | Emergency (ER) | payer MEDICARE, BC ==
[2017-05-02 09:36] VITALS: BP 139/65
--- NOTE | 2017-05-02 09:57 | UC ---
Complaint Female HPI - HPI Summary HPI Summary: Patient presents with a past medical history of GERD, Arthritis, and HTN, DVT She presents today with 24 hours complaints of urinary incontinence, hemturia, frequency, and urgency. She states these symptoms are consistent of when she has UTI, and reports she has had two in the last 6 months. She denies any fever , chills, flank or abdominal pain, nausea, vomiting, diarrhea. - History Of Current Complaint Chief Complaint: UCGU Stated Complaint: BLOOD,PAINFUL,FREQUENT URINATION Time Seen by Provider: 05/02/17 09:37 Hx Obtained From: Patient Onset/Duration: Gradual Onset, Lasting Hours Timing: Intermittent, Lasting Minutes Character: Burning Aggravating Factor(s): Urination Alleviating Factor(s): Nothing Associated Signs And Symptoms: Positive: Negative - Risk Factors Ectopic Risk Factor: Negative Ovarian Torsion Risk Factor: Negative - Allergies/Home Medications Allergies/Adverse Reactions: Allergies Allergy/AdvReac Type Severity Reaction Status Date / Time Nickel Allergy Intermediate Hives Verified 05/02/17 09:31 Minoxidil Allergy CHEST Verified 05/02/17 09:31 PRESSURE Cetirizine [From Zyrtec] AdvReac Intermediate INCREASED Verified 05/02/17 09:31 BLOOD PRESSURE/rapid heart rate Levocetirizine [From Xyzal] AdvReac Intermediate INCREASED Verified 05/02/17 09: 31 BLOOD PRESSURE, rapid heart rate Morphine AdvReac Intermediate Vomiting Verified 05/02/17 09:31 SEASONAL ALLERGY Allergy Sneezing Uncoded 05/02/17 09:31 Home Medications: Home Medications Aspirin EC Low Dose* [Ecotrin EC Low Dose 81 MG*] 81 mg PO DAILY 05/02/17 [ History Confirmed 05/02/17] Diclofenac Sodium EC TAB* [Voltaren EC TAB*] 50 mg PO DAILY 05/02/17 [History Confirmed 05/02/17] PMH/Surg Hx/FS Hx/Imm Hx Previously Healthy: Yes Cardiovascular History: Hypertension GI/ History: Gastroesophageal Reflux - Surgical History Surgical History: Yes Surgery Procedure, Year, and Place: Laminectomy x2;1985 1989, [facility]. Right Total Knee04/21/10; [facility] [place]. Left Knee Arthroscopy; [facility] [place]. Vein Surgery Left Leg 2012, [facility] [place], OFFICE X 2. L Knee replacement 01/03 - Family History Known Family History: Positive: Cardiac Disease, Hypertension Family History: denies cardio vascular issues in family lineage - Social History Occupation: Retired Lives: Alone Alcohol Use: Rare Alcohol Amount: wine with friends Substance Use Type: None Smoking Status (MU): Never Smoked Tobacco - Immunization History Most Recent Influenza Vaccination: HAS NOT HAD Most Recent Pneumonia Vaccination: NONE Review of Systems Constitutional: Negative Skin: Negative Eyes: Negative ENT: Negative Respiratory: Negative Cardiovascular: Negative Gastrointestinal: Negative Genitourinary: Dysuria, Hematuria, Frequency, Urgency Motor: Negative Neurovascular: Negative Musculoskeletal: Negative Neurological: Negative Psychological: Negative Is Patient Immunocompromised?: No All Other Systems Reviewed And Are Negative: Yes Physical Exam Triage Information Reviewed: Yes Appearance: Well-Appearing Vital Signs: Initial Vital Signs Temp 97.9 F 05/02/17 09:27 Pulse 63 05/02/17 09:27 Resp 18 05/02/17 09:27 BP 139/65 05/02/17 09:27 Pulse Ox 100 05/02/17 09:27 Eye Exam: Normal ENT Exam: Normal Neck exam: Normal Neck: Positive: 1 Respiratory Exam: Normal Cardiovascular Exam: Normal Abdominal Exam: Normal Skin Exam: Normal Complaint Female Dx - Course Course Of Treatment: Patient presents with one day onset urianry urgency, frequency, hematuria, ua + for UTI, vital signs stable and patient is afebrile. She was RX Cipro 500 mg p/o. bid x 10 days and told to follow up with PCP YRIS. She verbalzied understanding of and was in agreement with the discharge plan. - Differential Dx/Diagnosis Differential Diagnosis/HQI/PQRI: Urinary Tract Infection Provider Diagnoses: uti. hematuria Discharge - Discharge Plan Condition: Stable Disposition: HOME Prescriptions: Ciprofloxacin TAB* [Cipro 500 MG TAB*] 500 mg PO BID #20 tab Patient Education Materials: Urinary Tract Infection in Women (ED) Referrals: Shelbie Perdomo MD [Primary Care Provider] -
== END 2017-05-02 10:01 | disposition home or self-care (01) ==
LOC: UCEAST 09:23
DX: N39.0 Urinary tract infection, site not specified (principal); B96.20 Unspecified Escherichia coli [E. coli] as the cause of diseases classified elsewhere
CPT/HCPCS: 81003; 87077; 87086; 87186; 99212; G0463

== ENCOUNTER 2017-05-15 19:04 | Emergency (ER) | payer MEDICARE, BC ==
--- NOTE | 2017-05-15 19:51 | UC ---
Complaint Female HPI - History Of Current Complaint Chief Complaint: UCGU Stated Complaint: POSS UTI Time Seen by Provider: 05/15/17 19:43 Pain Intensity: 5 - Allergies/Home Medications Allergies/Adverse Reactions: Allergies Allergy/AdvReac Type Severity Reaction Status Date / Time Nickel Allergy Intermediate Hives Verified 05/15/17 19:23 Minoxidil Allergy CHEST Verified 05/15/17 19:23 PRESSURE Cetirizine [From Zyrtec] AdvReac Intermediate INCREASED Verified 05/15/17 19:23 BLOOD PRESSURE/rapid heart rate Levocetirizine [From Xyzal] AdvReac Intermediate INCREASED Verified 05/15/17 19: 23 BLOOD PRESSURE, rapid heart rate Morphine AdvReac Intermediate Vomiting Verified 05/15/17 19:23 SEASONAL ALLERGY Allergy Sneezing Uncoded 05/15/17 19:23 PMH/Surg Hx/FS Hx/Imm Hx - Surgical History Surgical History: Yes Surgery Procedure, Year, and Place: Laminectomy x2;1985 1989, [facility]. Right Total Knee04/21/10; [facility] [place] [place]. Left Knee Arthroscopy; [facility] [place] [place]. Vein Surgery Left Leg 2012, [facility] [place] [place], OFFICE X 2. L Knee replacement 01/03 - Family History Known Family History: Positive: Cardiac Disease, Hypertension Family History: denies cardio vascular issues in family lineage - Social History Alcohol Use: Rare Alcohol Amount: wine with friends Substance Use Type: None Smoking Status (MU): Never Smoked Tobacco - Immunization History Most Recent Influenza Vaccination: HAS NOT HAD Most Recent Pneumonia Vaccination: NONE Physical Exam Vital Signs: Initial Vital Signs Temp 97.6 F 05/15/17 19:27 Pulse 64 05/15/17 19:27 Resp 16 05/15/17 19:27 BP 147/77 05/15/17 19:27 Pulse Ox 96 05/15/17 19:27 Discharge - Discharge Plan Referrals: Shelbie Perdomo MD [Primary Care Provider] -
--- NOTE | 2017-05-15 21:30 | UC ---
Complaint Female HPI - HPI Summary HPI Summary: PT COMPLETED 10 DAYS OF CIPRO FOR E.COLI UTI 4 DAYS AGO. FELT SX WERE IMPROVED BUT DID NOT ENTIRELY RESOLVE. THIS AFTERNOON HAD SUDDEN WORSENING OF LOWER ABDOMINAL FULLNESS AND DYSURIA. NO FEVER, NAUSEA OR BACK PAIN. HAS HAD FREQUENT UTI RECENTLY. 3 TIMES SINCE 02/2017. - History Of Current Complaint Chief Complaint: UCGU Stated Complaint: POSS UTI Time Seen by Provider: 05/15/17 19:43 Hx Obtained From: Patient Onset/Duration: Sudden Onset, Lasting Hours Timing: Constant Severity Currently: Severe Pain Intensity: 5 Pain Scale Used: 0-10 Numeric Character: Burning Aggravating Factor(s): Urination Alleviating Factor(s): Nothing Associated Signs And Symptoms: Positive: Negative - Allergies/Home Medications Allergies/Adverse Reactions: Allergies Allergy/AdvReac Type Severity Reaction Status Date / Time Nickel Allergy Intermediate Hives Verified 05/15/17 19:23 Minoxidil Allergy CHEST Verified 05/15/17 19:23 PRESSURE Cetirizine [From Zyrtec] AdvReac Intermediate INCREASED Verified 05/15/17 19:23 BLOOD PRESSURE/rapid heart rate Levocetirizine [From Xyzal] AdvReac Intermediate INCREASED Verified 05/15/17 19: 23 BLOOD PRESSURE, rapid heart rate Morphine AdvReac Intermediate Vomiting Verified 05/15/17 19:23 SEASONAL ALLERGY Allergy Sneezing Uncoded 05/15/17 19:23 PMH/Surg Hx/FS Hx/Imm Hx Cardiovascular History: Hypertension Respiratory History: Asthma - Surgical History Surgical History: Yes Surgery Procedure, Year, and Place: Laminectomy x2;1985 1989, [facility]. Right Total Knee04/21/10; [facility] [place]. Left Knee Arthroscopy; [facility] [place]. Vein Surgery Left Leg 2012, [facility] [place], OFFICE X 2. L Knee replacement 01/03 - Family History Known Family History: Positive: Cardiac Disease, Hypertension Family History: denies cardio vascular issues in family lineage - Social History Alcohol Use: Rare Alcohol Amount: wine with friends Substance Use Type: None Smoking Status (MU): Never Smoked Tobacco - Immunization History Most Recent Influenza Vaccination: HAS NOT HAD Most Recent Pneumonia Vaccination: NONE Review of Systems Constitutional: Negative Respiratory: Negative Cardiovascular: Negative Gastrointestinal: Abdominal Pain Genitourinary: Dysuria, Frequency, Urgency All Other Systems Reviewed And Are Negative: Yes Physical Exam Triage Information Reviewed: Yes Appearance: Well-Appearing, No Pain Distress, Well-Nourished Vital Signs: Initial Vital Signs Temp 97.6 F 05/15/17 19:27 Pulse 64 05/15/17 19:27 Resp 16 05/15/17 19:27 BP 147/77 05/15/17 19:27 Pulse Ox 96 05/15/17 19:27 Vital Signs Reviewed: Yes Eyes: Positive: Conjunctiva Clear ENT: Positive: Hearing grossly normal Neck: Positive: Supple Respiratory: Positive: No respiratory distress, No accessory muscle use Cardiovascular: Positive: Pulses Normal Abdomen Description: Positive: Nontender, Soft. Negative: CVA Tenderness (R), CVA Tenderness (L), Distended, Guarding Musculoskeletal: Positive: No Edema Neurological: Positive: Alert Psychological: Positive: Age Appropriate Behavior Skin: Negative: rashes Diagnostics - Laboratory Diagnostic Studies Completed/Ordered: URINE DIP SP. GR. 1.025, 2+ LEUKS, 2+ PROTEIN, 2+ BILI, POS NITRITES, 3+ BLOOD, 1+ KETONES Complaint Female Dx - Differential Dx/Diagnosis Provider Diagnoses: UTI Discharge - Discharge Plan Condition: Stable Disposition: HOME Prescriptions: Sulfamethox/Trimethoprim DS* [Bactrim DS 800/160 TAB*] 1 tab PO BID #13 tab Patient Education Materials: Urinary Tract Infection in Women (ED) Referrals: Singh Collazo MD [Medical Doctor] - 1 Week Shelbie Perdomo MD [Primary Care Provider] - If Needed Additional Instructions: FOLLOW-UP WITH YOUR IT HELP DESK ANALYST IN THE NEXT 1-2 WEEKS TO DISCUSS POSSIBLE UNDERLYING CAUSES OF YOUR RECENT FREQUENT UTI. GO TO THE ER WITHOUT FAIL IF YOU DEVELOP FEVER, FLANK PAIN, NAUSEA OR ANY OTHER CONCERNING SYMPTOMS.
[2017-05-15] MEDS ORDERED: Sulfamethox/Trimethoprim DS 800/160* TAB PO ONE (21:42)
[2017-05-15 21:58] VITALS: BP 153/80
== END 2017-05-15 21:56 | disposition home or self-care (01) ==
LOC: UCEAST 19:04
DX: N39.0 Urinary tract infection, site not specified (principal); J45.909 Unspecified asthma, uncomplicated; I10 Essential (primary) hypertension
CPT/HCPCS: 81003; 87077; 87086; 87186; 99212; A9270-GY; G0463

== ENCOUNTER 2018-01-16 18:24 | Emergency (ER) | payer MEDICARE, BC ==
[2018-01-16 18:36] VITALS: BP 148/95
--- NOTE | 2018-01-16 19:08 | UC ---
Complaint Female HPI - HPI Summary HPI Summary: ua sent to the lab on 2 days ago---has continued pain and burning with urination no fevers chills back pain or fevers----history of chronic issues with uti--- - History Of Current Complaint Chief Complaint: UCGU Stated Complaint: FREQ URINATING,PAIN Time Seen by Provider: 01/16/18 19:03 Hx Obtained From: Patient ?: No Onset/Duration: Sudden Onset, Lasting Days - 3, Still Present Timing: Constant Pain Intensity: 7 Pain Scale Used: 0-10 Numeric Character: Burning, Cramping Aggravating Factor(s): Urination Alleviating Factor(s): Nothing Associated Signs And Symptoms: Positive: Negative - Allergies/Home Medications Allergies/Adverse Reactions: Allergies Allergy/AdvReac Type Severity Reaction Status Date / Time nickel Allergy Intermediate Hives Verified 01/16/18 18:37 minoxidil Allergy Chest Verified 01/16/18 18:37 Pressure cetirizine [From Zyrtec] AdvReac Intermediate Increased Verified 01/16/18 18:37 blood pressure levocetirizine [From Xyzal] AdvReac Intermediate Increased Verified 01/16/18 18: 37 blood pressure morphine AdvReac Intermediate Nausea And Verified 01/16/18 18:37 Vomiting SEASONAL ALLERGY Allergy Sneezing Uncoded 01/16/18 18:37 Home Medications: Home Medications Conjugated Estrogens VAG CM* [Premarin VAG CREAM*] 1 applic VAGINAL WEEKLY 01/16 [History Confirmed 01/16/18] Lisinopril/HCTZ 20/12.5(NF) [Zestoretic 20/12.5(NF)] 1 tab PO DAILY 01/16/18 [ History Confirmed 01/16/18] PMH/Surg Hx/FS Hx/Imm Hx Previously Healthy: No - chronic back pain GI/ History: Gastroesophageal Reflux - Surgical History Surgical History: Yes Surgery Procedure, Year, and Place: Laminectomy x2;1985 1989, [facility]. Right [place] [facility] [place] [facility] [place] [facility] [place]. L Knee replacement 01/03 - Family History Known Family History: Positive: Cardiac Disease, Hypertension Family History: denies cardio vascular issues in family lineage - Social History Occupation: Retired Lives: With Family Alcohol Use: Rare Alcohol Amount: wine with friends Substance Use Type: None Smoking Status (MU): Never Smoked Tobacco - Immunization History Most Recent Influenza Vaccination: HAS NOT HAD Most Recent Pneumonia Vaccination: NONE Review of Systems Constitutional: Negative Skin: Negative Eyes: Negative ENT: Negative Respiratory: Negative Cardiovascular: Negative Gastrointestinal: Negative Genitourinary: Dysuria, Frequency, Urgency Motor: Negative Neurovascular: Negative Musculoskeletal: Negative Neurological: Negative Psychological: Negative Is Patient Immunocompromised?: No All Other Systems Reviewed And Are Negative: Yes Physical Exam Triage Information Reviewed: Yes Appearance: Well-Appearing, Well-Nourished, Pain Distress Vital Signs: Initial Vital Signs Temp 97.4 F 01/16/18 18:32 Pulse 58 01/16/18 18:32 Resp 20 01/16/18 18:32 BP 148/95 01/16/18 18:32 Pulse Ox 100 01/16/18 18:32 Vital Signs Reviewed: Yes Eye Exam: Normal Eyes: Positive: Conjunctiva Clear ENT Exam: Normal ENT: Positive: Normal ENT inspection, Hearing grossly normal. Negative: Trismus , Muffled voice, Hoarse voice Dental Exam: Normal Neck exam: Normal Neck: Positive: Supple, Nontender Respiratory Exam: Normal Respiratory: Positive: Chest non-tender, No respiratory distress, No accessory muscle use Cardiovascular Exam: Normal Cardiovascular: Positive: RRR, Pulses Normal, Brisk Capillary Refill Abdominal Exam: Normal Abdomen Description: Positive: No Organomegaly, Soft, Other: - suprapubic pressure. Negative: CVA Tenderness (R), CVA Tenderness (L) Bowel Sounds: Positive: Present Musculoskeletal Exam: Normal Musculoskeletal: Positive: Strength Intact, ROM Intact, No Edema Neurological Exam: Normal Neurological: Positive: Alert, Muscle Tone Normal Psychological Exam: Normal Skin Exam: Normal Complaint Female Dx - Course Course Of Treatment: will add uera plasm on to urine culture---will treat with dox and pyridium pending the return of the culture. and follow with pcp tomorrow - Differential Dx/Diagnosis Provider Diagnoses: dysuria, hematuria, elevated blood pressure without diagnosis of hypertension Discharge - Sign-Out/Discharge Documenting (check all that apply): Patient Departure All imaging exams completed and their final reports reviewed: No Studies - Discharge Plan Condition: Stable Disposition: HOME Prescriptions: DOXYcycline CAP(*) [DOXYcycline 100MG CAP(*)] 100 mg PO BID #19 cap oxyCODONE/Acetamin 5/325 MG* [Percocet 5/325 TAB*] 1 tab PO Q6H PRN #10 tab MDD 4 PRN Reason: pain Phenazopyridine TAB* [Pyridium 100 mg TAB*] 200 mdi PO TID PRN #16 tab PRN Reason: urinary pain and burning Patient Education Materials: Hematuria (ED), Dysuria (ED) Referrals: Singh Collazo MD [Medical Doctor] - 1 Day - Billing Disposition and Condition Condition: STABLE Disposition: Home
[2018-01-16] MEDS ORDERED: DOXYcycline CAP(*) 100 MG PO ONE (19:26)
[2018-01-16] MEDS ORDERED: Phenazopyridine TAB* 100 MG PO ONE (19:27)
== END 2018-01-16 19:44 | disposition home or self-care (01) ==
LOC: UCEAST 18:24
DX: R30.0 Dysuria (principal); R31.9 Hematuria, unspecified; R03.0 Elevated blood-pressure reading, without diagnosis of hypertension; Z96.653 Presence of artificial knee joint, bilateral; Z88.5 Allergy status to narcotic agent; Z88.8 Allergy status to other drugs, medicaments and biological substances
CPT/HCPCS: 81003; 87077; 87086; 87186; 87491; 87591; 87798; 99212; A9270-GY; G0463

== ENCOUNTER 2018-02-06 16:39 | Emergency (ER) | payer MEDICARE, BC ==
[2018-02-06 17:02] VITALS: BP 150/84
--- NOTE | 2018-02-06 17:03 | UC ---
Complaint Female HPI - HPI Summary HPI Summary: 72 y/o male presents to the urgent care c/o frequency and burning on urination since this morning. pt reports she was seen here at the clinic on 01/16/2018 for UTI and Rx Doxycycline PO. She thinks symptoms her UTI didn't completely resolved. Pt has an appt w/ Urologist DR Whiteside at the end of January. Her PCP referred her there since she is having recurrent UTIs. Pt denies fever, lower back pain, flank pain, vaginal discharge, SOB, chest pain, abdominal pain, N/v/ d. - History Of Current Complaint Stated Complaint: POSS UTI Time Seen by Provider: 02/06/18 17:02 Hx Obtained From: Patient Onset/Duration: Gradual Onset, Lasting Days - 1 day, Still Present Timing: Intermittent Severity Initially: Mild Severity Currently: Mild Pain Intensity: 2 Pain Scale Used: 0-10 Numeric Character: Burning Aggravating Factor(s): Urination Alleviating Factor(s): Nothing Associated Signs And Symptoms: Positive: Negative. Negative: Fever, Back Pain, Vaginal Discharge, Genital Swelling - Risk Factors Ectopic Risk Factor: Negative Ovarian Torsion Risk Factor: Negative - Allergies/Home Medications Allergies/Adverse Reactions: Allergies Allergy/AdvReac Type Severity Reaction Status Date / Time nickel Allergy Intermediate Hives Verified 02/06/18 16:52 minoxidil Allergy Chest Verified 02/06/18 16:52 Pressure cetirizine [From Zyrtec] AdvReac Intermediate Increased Verified 02/06/18 16:52 blood pressure levocetirizine [From Xyzal] AdvReac Intermediate Increased Verified 02/06/18 16: 52 blood pressure morphine AdvReac Intermediate Nausea And Verified 02/06/18 16:52 Vomiting SEASONAL ALLERGY Allergy Sneezing Uncoded 02/06/18 16:52 Home Medications: Home Medications oxyCODONE/Acetamin 5/325 MG* [Percocet 5/325 TAB*] 0.5 tab PO Q6H PRN MDD 4 [History Confirmed 02/06/18] PMH/Surg Hx/FS Hx/Imm Hx Previously Healthy: Yes Other Endocrine History: Osteoarthritis Cardiovascular History: Hypertension GI/ History: Gastroesophageal Reflux - Surgical History Surgical History: Yes Surgery Procedure, Year, and Place: Laminectomy x2;1985 1989, [facility]. Right Total Knee04/21/10; [facility] [place]. Left Knee Arthroscopy; [facility] [place]. Vein Surgery Left Leg 2012, [facility] [place], OFFICE X 2. L Knee replacement 01/03 - Family History Known Family History: Positive: Cardiac Disease, Hypertension Family History: denies cardio vascular issues in family lineage - Social History Occupation: Retired Lives: With Family Alcohol Use: Rare Alcohol Amount: wine with friends Substance Use Type: None Smoking Status (MU): Never Smoked Tobacco - Immunization History Most Recent Influenza Vaccination: HAS NOT HAD Most Recent Pneumonia Vaccination: NONE Review of Systems Constitutional: Negative Skin: Negative Eyes: Negative ENT: Negative Respiratory: Negative Cardiovascular: Negative Gastrointestinal: Negative Genitourinary: Dysuria, Frequency, Urgency Motor: Negative Neurovascular: Negative Musculoskeletal: Negative Neurological: Negative Psychological: Negative Is Patient Immunocompromised?: No All Other Systems Reviewed And Are Negative: Yes Physical Exam - Summary Physical Exam Summary: VITAL SIGNS: Reviewed. GENERAL: Patient is a well developed and nourished obese female who is sitting comfortable in the examining table. Patient is not in any acute respiratory distress. HEAD AND FACE: No signs of trauma. No ecchymosis, hematomas or skull depressions. No sinus tenderness. EYES: PERRLA, EOMI x 2, No injected conjunctiva, clear watery eyes, no nystagmus. No photophobia. EARS: Hearing grossly intact. Ear canals and tympanic membranes are within normal limits. MOUTH: pharynx with no erythema, no exudates,no palatal petechiae. no B/L tonsillar enlargement Uvula in midline. NECK: Supple, trachea is midline, no lymphadenopathy, no JVD, no carotid bruit, no c-spine tenderness, neck with full ROM. CHEST: Symmetric, no tenderness at palpation LUNGS: Clear to auscultation bilaterally. No wheezing or crackles. CVS: Regular rate and rhythm, S1 and S2 present, no murmurs or gallops appreciated. ABDOMEN: Soft, non-tender. No signs of distention. No rebound no guarding, and no masses palpated. Bowel sounds are normal. BACK:no scoliosis or lesions, non tender to palpation, No B/L CVA tenderness EXTREMITIES: FROM in all major joints, no edema, no cyanosis or clubbing. NEURO: Alert and oriented x 3. No acute neurological deficits. Speech is normal and follows commands. SKIN: Dry and warm Triage Information Reviewed: Yes Vital Signs: Initial Vital Signs Temp 97.7 F 02/06/18 16:46 Pulse 61 02/06/18 16:46 Resp 18 02/06/18 16:46 BP 150/84 02/06/18 16:46 Pulse Ox 100 02/06/18 16:46 Complaint Female Dx - Course Course Of Treatment: 72 y/o male presents to the urgent care c/o frequency and burning on urination since this morning. pt reports she was seen here at the clinic on 01/16/2018 for UTI and Rx Doxycycline PO. She thinks symptoms her UTI didn't completely resolved. Pt has an appt w/ Urologist DR Whiteside at the end of January. Her PCP referred her there since she is having recurrent UTIs. Pt denies fever, lower back pain, flank pain, vaginal discharge, SOB, chest pain, abdominal pain, N/v/d.Hx obtained. PE; WNL. UA and test ordered. UA results: Blood 2+, Leukoesterase 1+, ketones. Pt denies vaginal discharge. I review Pt's Pt;s previous culture sensitivities. Pt w/ recurrent UTI. Unable to Rx Bactrim P which is very sensitive sicn ePt takes Lisinipril PO for HTN. Pt Rx Augmentin PO which is also sensitive. Advised to take Pyridium 100mg PO TID x 2 days she has at home. Advised to increase fluid intake. Urine sent for culture if any abnormality Pt will be notified for further treatment. Pt strongly advised to f/u her appt w/ urologist Dr Merida for further management. Pt understood and agreed w/ plan of care. Pt Left the clinic ambulating. - Differential Dx/Diagnosis Differential Diagnosis/HQI/PQRI: Cervicitis, Renal Colic, Ureteral Stone, Urinary Tract Infection, Other - bladder prolapse Provider Diagnoses: 1- UTI. 2- Dysuria Discharge - Sign-Out/Discharge Documenting (check all that apply): Patient Departure - d/c home All imaging exams completed and their final reports reviewed: No Studies - Discharge Plan Condition: Stable Disposition: HOME Prescriptions: Amoxicillin/Clavulanate TAB* [Augmentin TAB 875*] 875 mg PO BID #14 tab Patient Education Materials: Urinary Tract Infection in Women (ED), Low-Sodium Diet (ED) Referrals: Shelbie Perdomo MD [Primary Care Provider] - 2 Days Uriah Mcgraw MD [Medical Doctor] - 1 Week Additional Instructions: 1- Please take augmentin PO x 7 days. Take Pyridium 100 mg PO TID x 2 days you have at home to alleviate urinary symptoms. Increase increase fluid intake. drink cranberry juice. 2-Urine sent for culture if any abnormality, you will be notified for further treatment. 3-If symptoms do not improve please return to the urgent care or f/u with her PCP. 4- Please keep your Appt w/ Urologist Dr Merida for further management on your recurrent UTI 5-Your BP is elevated today. please decrease salt in your diet, monitor BP and if it continues to be elevated please f/u with your PCP for further management - Billing Disposition and Condition Condition: STABLE Disposition: Home
== END 2018-02-06 17:35 | disposition home or self-care (01) ==
LOC: UCEAST 16:39
DX: N39.0 Urinary tract infection, site not specified (principal); M19.90 Unspecified osteoarthritis, unspecified site; I10 Essential (primary) hypertension; K21.9 Gastro-esophageal reflux disease without esophagitis
CPT/HCPCS: 81003; 87086; 99212; G0463

== ENCOUNTER 2023-03-13 19:54 | Observation (INO) ==
[2023-03-13] MEDS ORDERED: Lactated Ringers 1000 ml BAG 1,000 ML IV ONE (20:51)
[2023-03-13 21:19] LABS: ABS Basophils 0.1 10^3/uL (0.0-0.1); ABS Eosinophils 0.1 10^3/uL (0.0-0.5); ABS Lymphocytes 0.9 10^3/uL (1.0-4.8); ABS Monocytes 1.2 10^3/uL (0.0-0.9); ABS Neutrophils 8.7 10^3/uL (1.5-7.6); Eosinophil % 1.2 %; Hematocrit 39.5 % (35-45); Hemoglobin 13.6 g/dL (11.5-14.3); Lymphocyte % 8.1 %; Mean Corpuscular Hemoglobin 30.7 pg (27-33); Mean Corpuscular Hgb Conc 34.4 g/dL (31-36); Mean Corpuscular Volume 89.2 fL (80-97); Mean Platelet Volume 7.1 fL (7.5-11.2); Platelet Count 236 10^3/uL (150-450); Red Blood Count 4.43 10^6/uL (3.63-4.92); Red Cell Distribution Width 13.5 % (12-17)
[2023-03-13 21:39] LABS: Albumin 3.9 g/dL (3.2-5.2); Albumin/Globulin Ratio 1.1 (1-3); C Reactive Protein 37.71 mg/L (<8.01); Calcium 9.8 mg/dL (8.6-10.3); Globulin 3.5 g/dL (2-4); Potassium 3.4 mmol/L (3.5-5.0); Total Bilirubin 0.5 mg/dL (0.2-1.0); Total Protein 7.4 g/dL (6.4-8.9); eGFR CKD-EPI 58.4 (>60)
[2023-03-13] MEDS ORDERED: Iodixanol (CONTRAST) 320 MG/ML 100 ML SDV IV ONE (22:04)
[2023-03-14] MEDS ORDERED: Ondansetron 4 mg VIAL 2 MG/ML 2 ml VIAL IV ONE ×2 (00:13→00:35)
[2023-03-14] MEDS ORDERED: Morphine 4 MG/ML VIAL (1 ml) IV ONE (00:13)
[2023-03-14] MEDS ORDERED: fentaNYL 100 mcg/2 ml 50 MCG/ML VIAL IV SLOW PU ONE (00:35)
[2023-03-14] MEDS ORDERED: Piperacillin/Tazobac 3.375 BAG 3.375 GM/100 ML BAG IV ONE ×2 (00:35→09:00)
[2023-03-14] MEDS ORDERED: Lactated Ringers 1000 ml BAG 1,000 ML IV SCH (01:00)
[2023-03-14] MEDS ORDERED: Zosyn per Pharmacy NOTE FOLLOW UP SCH (01:00)
[2023-03-14] MEDS ORDERED: Albuterol HFA INHALER 8 gm MDI INH PRN (02:07)
[2023-03-14] MEDS ORDERED: Morphine 2 MG/ML SYRINGE IV PRN ×3 (02:10→14:24)
[2023-03-14] MEDS ORDERED: Enoxaparin 40 MG/0.4 ML SYR SUBCUT SCH (03:00)
[2023-03-14] MEDS: ZOSYN 3.375 GM Q8H per EXTENDED INFUSION IV SCH ×4 (04:04→23:14)
[2023-03-14 05:15] LABS: Urine Appearance Clear; Urine Bacteria Absent (Absent); Urine Bilirubin Negative (Negative); Urine Blood 1+ (Negative); Urine Color Yellow; Urine Glucose Negative (Negative); Urine Ketones Negative (Negative); Urine Nitrite Negative (Negative); Urine Protein Negative (Negative); Urine Red Blood Cell 2+(6-10/hpf) (Absent); Urine Renal Epithelial Cells Present (Absent); Urine Specific Gravity 1.021 (1.002-1.030); Urine Squamous Epithelial Cell Present (Absent); Urine Transitional Epithelial Present (Absent); Urine Urobilinogen Negative (Negative); Urine White Blood Cell 1+(6-10/hpf) (Absent)
[2023-03-14] MEDS: Lactated Ringers 1000 ml BAG 1,000 ML IV SCH ×2 (05:17→09:45)
[2023-03-14 09:03] LABS: ABS Basophils 0.1 10^3/uL (0.0-0.1); ABS Monocytes 1.4 10^3/uL (0.0-0.9); ABS Neutrophils 11.4 10^3/uL (1.5-7.6); ABS Nucleated RBC 0.01 10^3/ul; Eosinophil % 0.2 %; Hematocrit 40.3 % (35-45); Hemoglobin 13.8 g/dL (11.5-14.3); Lymphocyte % 7.4 %; Mean Corpuscular Hemoglobin 30.9 pg (27-33); Mean Corpuscular Hgb Conc 34.3 g/dL (31-36); Mean Corpuscular Volume 90.1 fL (80-97); Mean Platelet Volume 6.8 fL (7.5-11.2); Nucleated Red Blood Cells % 0.1 %/100WBC (0.0-0.8); Platelet Count 245 10^3/uL (150-450); Red Blood Count 4.47 10^6/uL (3.63-4.92); Red Cell Distribution Width 13.5 % (12-17); White Blood Count 13.9 10^3/uL (3.8-11.8)
[2023-03-14 10:48] LABS: Albumin 3.9 g/dL (3.2-5.2); Albumin/Globulin Ratio 1.1 (1-3); Calcium 9.8 mg/dL (8.6-10.3); Creatinine, Serum 0.9 mg/dL (0.51-0.95); Globulin 3.6 g/dL (2-4); Magnesium 2.2 mg/dL (1.9-2.7); Total Bilirubin 1.1 mg/dL (0.2-1.0); Total Protein 7.5 g/dL (6.4-8.9); eGFR CKD-EPI 66.3 (>60)
[2023-03-14 11:15] LABS: Potassium 3.6 mmol/L (3.5-5.0)
[2023-03-14] MEDS: HYDROmorphone 0.5 MG/0.5 ML SYRINGE IV SLOW PU PRN (16:03)
[2023-03-14] MEDS: Metoclopramide 5 MG/ML VIAL (10 mg) IV PRN (16:03)
[2023-03-14] MEDS: NS 0.9% 1000 ml BAG 1,000 ML IV SCH ×2 (17:43→23:53)
[2023-03-14] MEDS: FLUTICASONE PROPIONATE INH SCH (23:31)
[2023-03-15] MEDS: HYDROmorphone 0.5 MG/0.5 ML SYRINGE IV SLOW PU PRN ×3 (03:45→21:19)
[2023-03-15] MEDS: Metoclopramide 5 MG/ML VIAL (10 mg) IV PRN ×2 (03:45→10:05)
[2023-03-15] MEDS: ZOSYN 3.375 GM Q8H per EXTENDED INFUSION IV SCH ×2 (06:06→20:58)
[2023-03-15] MEDS: NS 0.9% 1000 ml BAG 1,000 ML IV SCH ×2 (06:29→20:56)
[2023-03-15 07:35] LABS: ABS Eosinophils 0.1 10^3/uL (0.0-0.5); ABS Monocytes 1.2 10^3/uL (0.0-0.9); Eosinophil % 0.8 %; Hematocrit 33.7 % (35-45); Hemoglobin 11.7 g/dL (11.5-14.3); Lymphocyte % 6.8 %; Mean Corpuscular Hemoglobin 30.8 pg (27-33); Mean Corpuscular Hgb Conc 34.7 g/dL (31-36); Mean Corpuscular Volume 88.7 fL (80-97); Mean Platelet Volume 7.1 fL (7.5-11.2); Platelet Count 197 10^3/uL (150-450); Red Blood Count 3.81 10^6/uL (3.63-4.92); Red Cell Distribution Width 13.6 % (12-17); White Blood Count 14.3 10^3/uL (3.8-11.8)
[2023-03-15 08:46] LABS: Calcium 8.7 mg/dL (8.6-10.3); Creatinine, Serum 0.95 mg/dL (0.51-0.95); Potassium 2.9 mmol/L (3.5-5.0); eGFR CKD-EPI 62.1 (>60)
[2023-03-15] MEDS: FLUTICASONE PROPIONATE INH SCH ×2 (10:27→23:25)
[2023-03-15 10:58] LABS: Albumin 3.2 g/dL (3.2-5.2); Albumin/Globulin Ratio 1.1 (1-3); Direct Bilirubin 0.4 mg/dL (0.03-0.18); Indirect Bilirubin 0.6 mg/dL (0.3-1.0); Total Protein 6.2 g/dL (6.4-8.9)
[2023-03-15] MEDS ORDERED: Naloxone 0.4 mg VIAL 0.4 mg/ml 1 ml VIAL IV PRN (12:58)
[2023-03-15] MEDS ORDERED: Levalbuterol HFA INHALER MDI ONE (13:37)
[2023-03-15] MEDS ORDERED: Iohexol 180 (CONTRAST) 10 ML SDV IV ONE (13:47)
[2023-03-15] MEDS ORDERED: Lidocaine 1% w EPI 1:100,000 MDV 20 ML VIAL ONE (13:47)
[2023-03-15] MEDS ORDERED: Bupivacaine 0.25% SDV 30 ML ONE (13:47)
[2023-03-15] MEDS ORDERED: Propofol 10 MG/ML 20 ML BTL ONE (13:51)
[2023-03-15] MEDS ORDERED: Ondansetron 4 mg VIAL 2 MG/ML 2 ml VIAL ONE (13:51)
[2023-03-15] MEDS ORDERED: Dexamethasone IV 4 MG/ML VIAL 1 ml VIAL ONE (13:51)
[2023-03-15] MEDS ORDERED: Lidocaine 2% PF 5 ML VIAL ONE (13:51)
[2023-03-15] MEDS ORDERED: Rocuronium 50 mg VIAL 10 mg/ml 5 ml VIAL (50 mg) ONE (13:51)
[2023-03-15] MEDS ORDERED: Glycopyrrolate IV 0.2 MG/ML 1 ML VIAL ONE (13:51)
[2023-03-15] MEDS ORDERED: fentaNYL 100 mcg/2 ml 50 MCG/ML VIAL ONE ×3 (13:51→17:02)
[2023-03-15 13:57] LABS: Calcium 9.4 mg/dL (8.6-10.3); Creatinine, Serum 0.94 mg/dL (0.51-0.95); eGFR CKD-EPI 62.9 (>60)
[2023-03-15] MEDS ORDERED: KCL 20 MEQ/100 ML IVPREMIX 20 MEQ/100 ML BAG IV ONE ×2 (14:09→17:54)
[2023-03-15] MEDS ORDERED: Phenylephrine 40 mcg/mL 10mL (400mcg) SYRINGE ONE (15:26)
[2023-03-15] MEDS: fentaNYL 100 mcg/2 ml 50 MCG/ML VIAL IV PRN ×5 (16:17→17:03)
[2023-03-15] MEDS ORDERED: HYDROmorphone 1 MG/1 ML SYRINGE ONE (17:14)
[2023-03-15] MEDS: HYDROmorphone 1 MG/1 ML SYRINGE IV PRN ×2 (17:24→17:48)
[2023-03-15] MEDS ORDERED: Potassium Chlor 20 meq TAB.ER PO ONE (17:54)
[2023-03-16] MEDS: ZOSYN 3.375 GM Q8H per EXTENDED INFUSION IV SCH ×3 (00:33→14:58)
[2023-03-16] MEDS: HYDROmorphone 0.5 MG/0.5 ML SYRINGE IV SLOW PU PRN ×4 (02:27→19:02)
[2023-03-16] MEDS: NS 0.9% 1000 ml BAG 1,000 ML IV SCH ×2 (04:00→12:06)
[2023-03-16] MEDS: FLUTICASONE PROPIONATE INH SCH (09:32)
[2023-03-16 09:55] LABS: ABS Basophils 0.1 10^3/uL (0.0-0.1); ABS Eosinophils 0.7 10^3/uL (0.0-0.5); ABS Lymphocytes 0.7 10^3/uL (1.0-4.8); ABS Monocytes 0.7 10^3/uL (0.0-0.9); ABS Neutrophils 13.3 10^3/uL (1.5-7.6); Eosinophil % 4.4 %; Hematocrit 35.4 % (35-45); Hemoglobin 12.1 g/dL (11.5-14.3); Lymphocyte % 4.7 %; Mean Corpuscular Hemoglobin 30.5 pg (27-33); Mean Corpuscular Hgb Conc 34.2 g/dL (31-36); Mean Corpuscular Volume 89.3 fL (80-97); Mean Platelet Volume 7.1 fL (7.5-11.2); Platelet Count 277 10^3/uL (150-450); Red Blood Count 3.97 10^6/uL (3.63-4.92); Red Cell Distribution Width 13.8 % (12-17); White Blood Count 15.5 10^3/uL (3.8-11.8)
[2023-03-16 10:20] LABS: Calcium 8.9 mg/dL (8.6-10.3); Creatinine, Serum 0.89 mg/dL (0.51-0.95); Potassium 3.5 mmol/L (3.5-5.0); eGFR CKD-EPI 67.1 (>60)
[2023-03-16 17:41] VITALS: BP 149/75
== END 2023-03-16 19:30 | disposition home or self-care (01) ==
LOC: EDHOLD 19:54 → ED 19:54 → SUATTDRO 03-14 00:38 → SSU 03-14 17:40
PROVIDERS: ADMIT Student in an Organized Health Care Education/Training Program; ATTEND Internal Medicine